=== PATIENT | female | born 1930 | race African-American/Black ===

== ENCOUNTER → 2017-03-24 | Outpatient (CLI) | payer BC, MEDICARE ==
[2016-05-04 15:00] VITALS: BP 143/90
[~2017-03-24] MED LIST: ACET650T26 PO; ASPI325T8 PO; ATOR20TA58 PO; CLON0.5T3 PO; CONTRAST GIVEN MC PRN; DIAZ5TAB4 PO; DILT180C29 PO; DULO30CA2 PO; DULO30CA43 PO; IOHEXOL 240 MG/ML 50ML VIAL. IV ONE; IOHEXOL 300 MG/ML 100ML VIAL. IV ONE; LINA5TAB4 PO; LOSA100T6 PO; LOSA50TA2 PO; METO100T7 PO; METO50TA6 PO; OMEG300C PO; PANT40TA3 PO; POLY17PO29 PO; SERT25TA4 PO; TEMA15CA PO; TRAM-48 PO; TRAM50TA PO; ZOLP5TAB PO
[2017-03-24 13:39] LABS: CREATININE 1.6 mg/dL (0.6-1.0); GFR 37.2
--- NOTE | 2017-03-24 14:14 | RAD ---
CT of the abdomen without contrast, 03/24/2017: History: Abdominal pain Multidetector CT imaging was performed following oral ingestion of contrast. No IV contrast was administered due to the patient's known renal insufficiency. There is linear scarring in the lung bases. Moderate coronary artery calcifications are present. There is a small cyst in anterior aspect of the liver. The unopacified liver is otherwise unremarkable. No gallbladder abnormality is seen. The pancreas is unremarkable. The spleen is of normal size. There are numerous bilateral renal cysts. The largest of these lies in the lower pole of the right kidney and measures 6.6 cm. The largest cyst on the left lies laterally and measures 5.2 cm. The renal collecting systems are not dilated. No adrenal abnormality is detected. There is moderate calcific plaquing of the abdominal aorta and its branches. There is only slight dilatation of the infrarenal abdominal aorta which measures 2.6 cm in AP diameter at that level. 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 It measures at least 2.7 cm. No abdominal adenopathy is seen. The visualized bowel loops are unremarkable. No free air or free fluid is seen in the abdomen. The rectus abdominis muscles are thinned. There is a small umbilical hernia containing only fat. There are moderate multilevel degenerative changes in the spine. A grade 1 spondylolisthesis is present at L3-4 due to facet joint arthropathy. IMPRESSION: 1. Multiple bilateral renal cysts. 2. Aortoiliac atherosclerosis with a left internal iliac artery aneurysm, incompletely delineated on these abdominal scans. 3. Small fat-containing umbilical hernia. 4. Mild spondylolisthesis at L3-4.
== END | disposition home or self-care (01) ==
LOC: CT 12:23
PROVIDERS: ATTEND Surgery
DX: K42.9 Umbilical hernia without obstruction or gangrene (principal); N28.1 Cyst of kidney, acquired; I72.3 Aneurysm of iliac artery; M43.16 Spondylolisthesis, lumbar region
CPT/HCPCS: 36415; 74150; 82565; 84520; Q9966; Q9967

== ENCOUNTER 2017-07-14 16:43 | Observation (INO) | payer BC ==
[2017-07-14 17:28] LABS: ADD MAN DIFF? NO
[2017-07-14 17:33] LABS: BASO % 1 % (0-3); EOS # 0.2 x10^3/uL (0.0-0.7); EOS % 4 % (0-3); HEMATOCRIT 43.4 % (36.0-47.0); HEMOGLOBIN 14.5 g/dL (12.0-15.5); LYMPH # 1.6 x10^3/uL (1.0-4.8); LYMPH % 35 % (24-48); MEAN CORPUSCULAR HEMOGLOBIN 31 pg (25-35); MEAN CORPUSCULAR HGB CONC 34 g/dL (31-37); MEAN CORPUSCULAR VOLUME 92 fL (79-100); MONO # 0.5 x10^3/uL (0.0-1.1); MONO % 11 % (0-9); NEUT # 2.3 x10^3uL (1.8-7.7); NEUT % 48 % (31-73); PLATELET COUNT 253 x10^3/uL (140-400); RED CELL DISTRIBUTION WIDTH 13.7 % (11.5-14.5); WHITE BLOOD COUNT 4.7 x10^3/uL (4.0-11.0)
[2017-07-14 17:42] LABS: INR 1.1 (0.8-1.1); PROTHROMBIN TIME PATIENT 13.4 SEC (11.7-14.0)
[2017-07-14 17:45] LABS: ANION GAP 10 (6-14); BLOOD UREA NITROGEN 20 mg/dL (7-20); CALCIUM 9.9 mg/dL (8.5-10.1); CARBON DIOXIDE 24 mmol/L (21-32); CHLORIDE 105 mmol/L (98-107); CREATININE 1.8 mg/dL (0.6-1.0); GFR 32.4; GLUCOSE 113 mg/dL (70-99); POTASSIUM 4.3 mmol/L (3.5-5.1); SODIUM 139 mmol/L (136-145)
[2017-07-14 17:53] LABS: ALBUMIN 3.6 g/dL (3.4-5.0); ALK PHOS 115 U/L (46-116); ALT (SGPT) 16 U/L (14-59); AST (SGOT) 17 U/L (15-37); DIRECT BILIRUBIN 0.1 mg/dL (0.0-0.2); LIPASE 215 U/L (73-393); MAGNESIUM 2.2 mg/dL (1.8-2.4); TOTAL BILIRUBIN 0.4 mg/dL (0.2-1.0); TOTAL PROTEIN 7.4 g/dL (6.4-8.2)
[2017-07-14 17:54] LABS: TROPONINI < 0.017 ng/mL (0.000-0.055)
[2017-07-14 17:58] LABS: THYROID STIM HORMONE (TSH) 1.338 uIU/mL (0.358-3.74)
[2017-07-14 18:04] LABS: NT-PRO BNP 422 pg/mL (0-449)
[2017-07-14 18:04] LABS: CKMB MASS 0.5 ng/mL (0.0-3.6); CREATINE KINASE 49 U/L (26-192)
[2017-07-14] MEDS: fentaNYL PF VIAL 100 MCG/2 ML VIAL IV (18:35)
[2017-07-14] MEDS ORDERED: ONDANSETRON PF 4 MG/2 ML VIAL. IV (19:45)
[2017-07-14] MEDS: IPRATRPIUM/ALBUTEROL 0.5/2.5MG 3 ML NEBU. NEB (21:00)
[2017-07-14] MEDS ORDERED: traMADol 50 MG TABLET PO (23:15)
[2017-07-15] MEDS: diphenhydrAMINE 50 MG/ML VIAL IVP (00:25)
[2017-07-15 02:19] LABS: ADD MAN DIFF? NO
[2017-07-15 02:39] LABS: BASO % 1 % (0-3); EOS # 0.3 x10^3/uL (0.0-0.7); EOS % 5 % (0-3); HEMATOCRIT 40.5 % (36.0-47.0); HEMOGLOBIN 13.9 g/dL (12.0-15.5); LYMPH # 2.1 x10^3/uL (1.0-4.8); LYMPH % 43 % (24-48); MEAN CORPUSCULAR HEMOGLOBIN 31 pg (25-35); MEAN CORPUSCULAR HGB CONC 34 g/dL (31-37); MEAN CORPUSCULAR VOLUME 92 fL (79-100); MONO # 0.5 x10^3/uL (0.0-1.1); MONO % 11 % (0-9); NEUT # 1.9 x10^3uL (1.8-7.7); NEUT % 39 % (31-73); PLATELET COUNT 230 x10^3/uL (140-400); RED BLOOD COUNT 4.43 x10^6/uL (3.50-5.40); RED CELL DISTRIBUTION WIDTH 13.4 % (11.5-14.5); WHITE BLOOD COUNT 4.8 x10^3/uL (4.0-11.0)
[2017-07-15 02:50] LABS: ANION GAP 9 (6-14); BLOOD UREA NITROGEN 20 mg/dL (7-20); CALCIUM 9.3 mg/dL (8.5-10.1); CARBON DIOXIDE 24 mmol/L (21-32); CHLORIDE 105 mmol/L (98-107); CREATININE 1.4 mg/dL (0.6-1.0); GFR 43.3; GLUCOSE 105 mg/dL (70-99); SODIUM 138 mmol/L (136-145)
[2017-07-15 03:02] LABS: TROPONINI < 0.017 ng/mL (0.000-0.055)
[2017-07-15] MEDS: IPRATRPIUM/ALBUTEROL 0.5/2.5MG 3 ML NEBU. NEB ×4 (08:22→20:16)
[2017-07-15] MEDS ORDERED: fentaNYL PF VIAL 100 MCG/2 ML VIAL IV (09:00)
[2017-07-15] MEDS: PANTOPRAZOLE 40 MG TABLET.DR. PO (09:46)
[2017-07-15] MEDS: ASPIRIN 325 MG TABLET PO (09:46)
[2017-07-15] MEDS: predniSONE 20 MG TABLET PO (09:46)
[2017-07-15] MEDS: METOPROLOL TART IMMED RELEASE 50 MG TABLET. PO ×2 (09:46→20:38)
[2017-07-15] MEDS: DULoxetine HCL 30 MG CAPSULE.DR PO (09:47)
[2017-07-15] MEDS: LOSARTAN POTASSIUM 50 MG TABLET. PO (09:47)
[2017-07-15] MEDS: KETOROLAC 30 MG/ML INJ. IV (09:47)
[2017-07-15] MEDS: ENOXAPARIN 30 MG/0.3 ML SYRINGE. SQ (09:48)
[2017-07-15] MEDS: POLYETHYLENE GLYCOL 3350 17 GM PACKET. PO (11:00)
[2017-07-15] MEDS: ATORVASTATIN CALCIUM 20 MG TABLET PO (20:37)
[2017-07-15] MEDS: clonazePAM 0.5 MG TABLET PO (20:38)
[2017-07-16] MEDS: IPRATRPIUM/ALBUTEROL 0.5/2.5MG 3 ML NEBU. NEB ×4 (05:59→19:37)
[2017-07-16] MEDS: LOSARTAN POTASSIUM 50 MG TABLET. PO (09:00)
[2017-07-16] MEDS: METOPROLOL TART IMMED RELEASE 50 MG TABLET. PO (09:00)
[2017-07-16] MEDS: POLYETHYLENE GLYCOL 3350 17 GM PACKET. PO (09:05)
[2017-07-16] MEDS: ENOXAPARIN 30 MG/0.3 ML SYRINGE. SQ (09:06)
[2017-07-16] MEDS: ACETAMINOPHEN 325 MG TABLET. PO ×3 (09:07→21:44)
[2017-07-16] MEDS: DULoxetine HCL 30 MG CAPSULE.DR PO (09:08)
[2017-07-16] MEDS: PANTOPRAZOLE 40 MG TABLET.DR. PO (09:08)
[2017-07-16] MEDS: ASPIRIN 325 MG TABLET PO (09:08)
[2017-07-16 10:16] LABS: ANION GAP 12 (6-14); BLOOD UREA NITROGEN 35 mg/dL (7-20); CARBON DIOXIDE 23 mmol/L (21-32); CHLORIDE 103 mmol/L (98-107); GFR 28.7; GLUCOSE 136 mg/dL (70-99); POTASSIUM 3.6 mmol/L (3.5-5.1); SODIUM 138 mmol/L (136-145)
[2017-07-16] MEDS: ATORVASTATIN CALCIUM 20 MG TABLET PO (20:14)
[2017-07-16] MEDS: clonazePAM 0.5 MG TABLET PO (20:14)
[2017-07-16] MEDS: METOPROLOL TART IMMED RELEASE 25 MG TABLET. PO (20:14)
[2017-07-17 05:29] LABS: HEMATOCRIT 38.5 % (36.0-47.0); HEMOGLOBIN 12.8 g/dL (12.0-15.5); MEAN CORPUSCULAR HEMOGLOBIN 31 pg (25-35); MEAN CORPUSCULAR HGB CONC 33 g/dL (31-37); MEAN CORPUSCULAR VOLUME 93 fL (79-100); PLATELET COUNT 225 x10^3/uL (140-400); RED BLOOD COUNT 4.14 x10^6/uL (3.50-5.40); RED CELL DISTRIBUTION WIDTH 13.3 % (11.5-14.5); WHITE BLOOD COUNT 5.8 x10^3/uL (4.0-11.0)
[2017-07-17 06:17] LABS: ANION GAP 9 (6-14); BLOOD UREA NITROGEN 34 mg/dL (7-20); CALCIUM 9.2 mg/dL (8.5-10.1); CARBON DIOXIDE 25 mmol/L (21-32); CHLORIDE 107 mmol/L (98-107); CREATININE 1.6 mg/dL (0.6-1.0); GFR 37.2; GLUCOSE 103 mg/dL (70-99); POTASSIUM 4.1 mmol/L (3.5-5.1); SODIUM 141 mmol/L (136-145)
[2017-07-17] MEDS: IPRATRPIUM/ALBUTEROL 0.5/2.5MG 3 ML NEBU. NEB ×5 (08:00→19:30)
[2017-07-17 08:12] LABS: SEDIMENTATION RATE 5 (0-25)
[2017-07-17] MEDS: METOPROLOL TART IMMED RELEASE 25 MG TABLET. PO ×2 (08:37→20:22)
[2017-07-17] MEDS: DULoxetine HCL 30 MG CAPSULE.DR PO (08:37)
[2017-07-17] MEDS: ACETAMINOPHEN 325 MG TABLET. PO ×3 (08:37→22:00)
[2017-07-17] MEDS: ASPIRIN 325 MG TABLET PO (08:37)
[2017-07-17] MEDS: POLYETHYLENE GLYCOL 3350 17 GM PACKET. PO (08:37)
[2017-07-17] MEDS: PANTOPRAZOLE 40 MG TABLET.DR. PO (08:38)
[2017-07-17] MEDS: LOSARTAN POTASSIUM 50 MG TABLET. PO (08:39)
[2017-07-17] MEDS: ENOXAPARIN 30 MG/0.3 ML SYRINGE. SQ (08:40)
[2017-07-17] MEDS: ATORVASTATIN CALCIUM 20 MG TABLET PO (20:22)
[2017-07-18] MEDS: ACETAMINOPHEN 325 MG TABLET. PO ×2 (06:21→13:06)
[2017-07-18] MEDS: IPRATRPIUM/ALBUTEROL 0.5/2.5MG 3 ML NEBU. NEB ×3 (08:04→15:14)
[2017-07-18] MEDS: ENOXAPARIN 30 MG/0.3 ML SYRINGE. SQ (09:00)
[2017-07-18] MEDS: ASPIRIN 325 MG TABLET PO (09:47)
[2017-07-18] MEDS: LOSARTAN POTASSIUM 50 MG TABLET. PO (09:47)
[2017-07-18] MEDS: PANTOPRAZOLE 40 MG TABLET.DR. PO (09:47)
[2017-07-18] MEDS: DULoxetine HCL 30 MG CAPSULE.DR PO (09:47)
[2017-07-18] MEDS: METOPROLOL TART IMMED RELEASE 25 MG TABLET. PO (09:47)
[2017-07-18] MEDS: POLYETHYLENE GLYCOL 3350 17 GM PACKET. PO (09:47)
== END 2017-07-18 16:10 | disposition home or self-care (01) ==
LOC: ER 16:43 → 6 SOUTH 18:36
DX: M19.012 Primary osteoarthritis, left shoulder (principal); M10.9 Gout, unspecified; R07.89 Other chest pain; I25.10 Atherosclerotic heart disease of native coronary artery without angina pectoris; I12.9 Hypertensive chronic kidney disease with stage 1 through stage 4 chronic kidney disease, or unspecified chronic kidney disease; N18.3 Chronic kidney disease, stage 3 (moderate); E78.5 Hyperlipidemia, unspecified; N17.9 Acute kidney failure, unspecified; E11.22 Type 2 diabetes mellitus with diabetic chronic kidney disease; I25.2 Old myocardial infarction; Z96.612 Presence of left artificial shoulder joint; Z90.710 Acquired absence of both cervix and uterus; Z95.1 Presence of aortocoronary bypass graft
CPT/HCPCS: 36415; 71045; 73030; 80048; 80076; 82553; 83690; 83735; 83880; 84443; 84484; 85025; 85027; 85610; 85651; 93005; 94640; 96372; 96374; 96375; 97165-GO; 97535-GO; 99285-25; G0378; G0379; J1200; J1650; J1885; J3010; J7512; J7620

== ENCOUNTER 2018-01-23 10:54 | Inpatient (IN) | payer BC ==
[~2018-01-23] VITALS: Ht 160 cm; Wt 68.5 kg
[~2018-01-23 10:54] MED LIST changes: +ACET325T9 PO; +CLON0.5T11 PO; -CLON0.5T3 PO; -CONTRAST GIVEN MC PRN; +DILT180C29; +DULO30CA43; +FURO20TA3 PO; -IOHEXOL 240 MG/ML 50ML VIAL. IV ONE; -IOHEXOL 300 MG/ML 100ML VIAL. IV ONE; -LOSA100T6 PO; +LOSA100T7 PO; +METO25TA4 PO
--- NOTE | 2018-01-23 11:39 | PHYS DOC ---
Past Medical History Past Medical History: CAD, Heart Disease, Hypertension, SC, Renal Disease Additional Past Medical Histor: Kidney problems, Heart problems Past Surgical History: Coronary Bypass Surgery, Hysterectomy, Other Additional Past Surgical Histo: Foot, L shoulder Alcohol Use: None Drug Use: None Adult General Chief Complaint Chief Complaint: MECHANICAL FALL HPI HPI Patient is a 87 year old female who presents with a fall last Monday in the bathroom and hurt her right hip and right side. Patient has been abusing her walker since the fall. Patient's daughter states that the patient states that the pain is little bit too much and she needed come to the hospital today. Daughter states the patient states that she started feeling her heart flutter. Patient denies chest pain, nausea, vomiting, abdominal pain. Daughter states that the patient just finished Cipro for a urinary tract infection that she is diagnosed with last . Patient's daughter is concerned that the urinary tract infection is not done as the patient has been still acting confused at times. The daughter does state that the patient does have dementia. Review of Systems Review of Systems Constitutional: Denies fever or chills [] Eyes: Denies change in visual acuity, redness, or eye pain [] HENT: Denies nasal congestion or sore throat [] Respiratory: Denies cough or shortness of breath [] Cardiovascular: Palpitations GI: Denies abdominal pain, nausea, vomiting, bloody stools or diarrhea [] : Denies dysuria or hematuria [] Musculoskeletal: Right rib pain. Denies back pain. Right hip joint pain [] Integument: Denies rash or skin lesions [] Neurologic: Denies headache, focal weakness or sensory changes [] Endocrine: Denies polyuria or polydipsia [] All other systems were reviewed and found to be within normal limits, except as documented in this note. Allergies Allergies Allergies Coded Allergies Type Severity Reaction Last Updated Verified iodine Allergy Severe SWELLING 06/23/15 Yes hydrocodone Allergy Intermediate PRURITIS 05/02/16 Yes lisinopril Allergy Intermediate COUGH 06/22/15 Yes Physical Exam Physical Exam Constitutional: Well developed, well nourished, no acute distress, non-toxic appearance. [] HENT: Normocephalic, atraumatic, bilateral external ears normal, oropharynx moist, no oral exudates, nose normal. [] Eyes: PERRLA, EOMI, conjunctiva normal, no discharge. [] Neck: Normal range of motion, no tenderness, supple, no stridor. [] Cardiovascular:Heart rate regular rhythm, no murmur [] Lungs & Thorax: Bilateral breath sounds clear to auscultation [] Abdomen: Bowel sounds normal, soft, Right upper quad tenderness, Right rib tenderness. no masses, no pulsatile masses. [] Skin: Warm, dry, no erythema, no rash. [] Back: No tenderness, no CVA tenderness. [] Extremities: Right hip tenderness, no cyanosis, no clubbing, right hip ROM not intact, no edema. [] Neurologic: Alert and oriented X 3, normal motor function, normal sensory function, no focal deficits noted. [] Psychologic: Affect normal, judgement normal, mood normal. [] Current Patient Data Vital Signs Vital Signs Date Time Temp Pulse Resp B/P (MAP) Pulse Ox O2 Delivery O2 Flow Rate FiO2 01/23/18 11:05 98.8 95 24 157/78 (104) 96 Room Air 98.8 Lab Values Laboratory Tests Test 01/23/18 11:55 White Blood Count 5.5 x10^3/uL (4.0-11.0) Red Blood Count 4.23 x10^6/uL (3.50-5.40) Hemoglobin 13.4 g/dL (12.0-15.5) Hematocrit 39.3 % (36.0-47.0) Mean Corpuscular Volume 93 fL (79-100) Mean Corpuscular Hemoglobin 32 pg (25-35) Mean Corpuscular Hemoglobin Concent 34 g/dL (31-37) Red Cell Distribution Width 13.0 % (11.5-14.5) Platelet Count 255 x10^3/uL (140-400) Neutrophils (%) (Auto) 65 % (31-73) Lymphocytes (%) (Auto) 22 % (24-48) L Monocytes (%) (Auto) 12 % (0-9) H Eosinophils (%) (Auto) 1 % (0-3) Basophils (%) (Auto) 1 % (0-3) Neutrophils # (Auto) 3.6 x10^3uL (1.8-7.7) Lymphocytes # (Auto) 1.2 x10^3/uL (1.0-4.8) Monocytes # (Auto) 0.6 x10^3/uL (0.0-1.1) Eosinophils # (Auto) 0.1 x10^3/uL (0.0-0.7) Basophils # (Auto) 0.1 x10^3/uL (0.0-0.2) Sodium Level 141 mmol/L (136-145) Potassium Level 3.2 mmol/L (3.5-5.1) L Chloride Level 104 mmol/L (98-107) Carbon Dioxide Level 30 mmol/L (21-32) Anion Gap 7 (6-14) Blood Urea Nitrogen 13 mg/dL (7-20) Creatinine 1.5 mg/dL (0.6-1.0) H Estimated GFR (Cockcroft-Gault) 39.9 Glucose Level 110 mg/dL (70-99) H Calcium Level 9.8 mg/dL (8.5-10.1) Troponin I Quantitative < 0.017 ng/mL (0.000-0.055) Laboratory Tests 01/23/18 11:55 Laboratory Tests 01/23/18 11:55 EKG EKG Sinus Rhythm, RBBB, NO STEMI Interpretation Time: [address] Carroll Radiology/Procedures Radiology/Procedures CT ABD PELVIS, CHEST XRAY Impressions: [facility] [address] [place], [place] [id number] IMAGING REPORT Signed PATIENT: VITO DUNCAN ACCOUNT: [id number] : 1930 LOCATION: ER AGE: 87 SEX: F EXAM STATUS: REG ER ORD. PHYSICIAN: LETTY THOMAS AUDITING CLERK REASON: FALL RIGHT SIDED UPPER ABD PAIN, RIGHT HIP PROCEDURE: CT ABDOMEN PELVIS WO CONTRAST CT ABDOMEN PELVIS WO CONTRAST Indication: FALL, RUQ ABD PAIN
Exposure: One or more of the following individualized dose reduction techniques were utilized for this examination: 1. Automated exposure control 2. Adjustment of the mA and/or kV according to patient size 3. Use of iterative reconstruction technique. Comparison: Prior CT abdomen of March 24, 2017. Contrast: No intravenous contrast given. No oral contrast per request. Evaluation of solid viscera, bowel and vasculature is compromised by the noncontrast technique. Lower thorax: Dense coronary artery calcification. Mild atelectasis in lung bases. Dense calcification partially seen in the right breast tissue laterally. Liver: Hypodense lesion anterior upper right lobe measures 15 mm in diameter stable since prior, measures 16 Hounsfield units, likely a cyst. Spleen: Unremarkable Pancreas: Unremarkable Adrenals: No evidence of mass. Kidneys: Numerous renal lesions are again identified bilaterally. 2 on the right kidney, largest measures 8.6 cm and 7.5 Hounsfield units. Innumerable confluent lesions of the left kidney overall demonstrates a similar morphology as on the prior exam. Several of the lesions on the left demonstrate some peripheral density. This could represent hemorrhage or calcification. This appears similar as prior study and therefore calcification is favored. Urinary tracts: No urolithiasis or hydronephrosis. Gallbladder: No calcified stone Aorta: Calcified and ectatic. Infrarenal aorta measures up to 2.6 cm transverse diameter, stable since prior study. Left internal iliac artery aneurysm measures 3.2 cm x 2.7 cm, was partially seen on prior study and appears similar where seen. Lymph nodes: No significant enlargement GI tract: Moderate distention of the colon with gas and stool. No evidence of bowel obstruction. Appendix is not clearly visualized. Reproductive organs:No evidence of mass. Urinary bladder: Not adequately distended for evaluation. Peritoneum: No evidence of pneumoperitoneum. No free fluid. Abdominal wall: Tiny fat-containing umbilical hernia. Spine: Degenerative spondylosis with spondylolisthesis, overall appears similar as prior exam. Bones: Degenerative changes at both hips. Degenerative changes at sacroiliac joints and pubic symphysis. IMPRESSION: 1. Numerous renal lesions, innumerable and confluent on the left, compatible with cysts. Some of the left cyst have a complex morphology with probable calcification. Overall the morphology is grossly similar to the prior study. 2. Moderate distention of colon with gas and stool, likely an ileus. 3. Atherosclerotic disease of the aorta and iliac vessels. Left internal iliac arterial aneurysm. Electronically signed by: Robinson Prince MD (01/23/2018 12:14 PM) [id number] DICTATED and SIGNED BY: ROBINSON PRINCE MD DATE: 01/23/18 1200 [facility] [address] [place] [address] IMAGING REPORT Signed PATIENT: VITO DUNCAN ACCOUNT: [id number] : 1930 LOCATION: ER AGE: 87 SEX: F EXAM STATUS: REG ER ORD. PHYSICIAN: LETTY THOMAS APRN REASON: FALL, RT SIDED CHEST PAIN PROCEDURE: CHEST PA & LATERAL AP and Lateral Views of the Chest 01/23/2018 11:14 AM Indication: PT FELL MONDAY RT SIDED CHEST PAIN Comparison: Chest radiograph October 15, 2014 Findings: No pneumothorax is identified. Multiple right-sided rib fractures are seen. Refer to dedicated rib radiographs for further detail. Right basilar atelectasis is noted. No focal consolidative infiltrate is seen. Heart size mildly enlarged. Median sternotomy noted.Bilateral shoulder arthroplasty noted. Degenerative changes of the thoracic spine are seen. IMPRESSION: Multiple inferior lateral right-sided rib fractures, better seen on dedicated rib radiographs. Right basilar atelectasis. No definitive pneumothorax or other acute cardiopulmonary process. Electronically signed by: Catrachito Gayle MD (01/23/2018 11:45 AM) [facility] DICTATED and SIGNED BY: CATRACHITO GAYLE MD DATE: 01/23/18 1138 [facility] [address] [facility] [place] [address] IMAGING REPORT Signed PATIENT: VITO DUNCAN ACCOUNT: [id number] : 1930 LOCATION: ER AGE: 87 SEX: F EXAM STATUS: REG ER ORD. PHYSICIAN: LETTY THOMAS APRN REASON: FALL, RT SIDED LOW RIB PAIN PROCEDURE: RIBS RIGHT Right RIBS, 2 views, 01/23/2018: HISTORY: Fall, injuries There is a slightly displaced fracture of the posterior lateral aspect of the right seventh rib. The lower ribs were not clearly defined on these radiographs due to motion artifacts, however, correlation with the current CT abdomen study demonstrates several additional right lower rib fractures, including the posterior 12th and 11th ribs, as well as the lateral eighth and 10th ribs. There is mild right basilar atelectasis. IMPRESSION: Multiple right lower rib fractures as described above. Electronically signed by: Eder Hernandez MD (01/23/2018 11:51 AM) [facility] DICTATED and SIGNED BY: EDER HERNANDEZ MD DATE: 01/23/18 1144 Course & Med Decision Making Course & Med Decision Making Patient is a 87 year old female who presents with a fall last Monday in the bathroom and hurt her right hip and right side. Patient has been abusing her walker since the fall. Patient's daughter states that the patient states that the pain is little bit too much and she needed come to the hospital today. Daughter states the patient states that she started feeling her heart flutter. Patient denies chest pain, nausea, vomiting, abdominal pain. Daughter states that the patient just finished Cipro for a urinary tract infection that she is diagnosed with last . Patient's daughter is concerned that the urinary tract infection is not done as the patient has been still acting confused at times. The daughter does state that the patient does have dementia. She is alert and oriented. Patient has no deformity or bruising seen. Patient does have right rib tenderness, right upper abdominal side tenderness, and right hip pain with palpation. When I rock her pelvic area she states it does not hurt. Patient has been up and walking and using her walker at home. Patient's daughter states that she has had several falls and then was diagnosed the urinary tract infection. Patient states that she has no chest pain. Her lungs are clear to auscultation. Patient currently denies having any urinary symptoms. Patient otherwise has a soft abdomen that is nontender. Patient has no lacerations, wounds, abrasions to the rest of her body or her head. Patient denies hitting her head or LOC. Patient's family also denies the patient hitting her head or LOC. Patient answers my questions appropriately. Patient's primary care provider is Dr. Verde. I asked the daughter if the patient was going to be following up with Dr. Verde since she just finished antibiotic for her urinary tract infection and she stated she does not know. No internal or external rotation of either leg. Denies any numbness or tingling. Radiology results show The lower ribs were not clearly defined on these radiographs due to motion artifacts, however, correlation with the current CT abdomen study demonstrates several additional right lower rib fractures, including the posterior 12th and 11th ribs, as well as the lateral eighth and 10th ribs. There is mild right basilar atelectasis. Multiple inferior lateral right-sided rib fractures, better seen on dedicated rib radiographs. Right basilar atelectasis. No definitive pneumothorax or other acute cardiopulmonary process. 1. Numerous renal lesions, innumerable and confluent on the left, compatible with cysts. Some of the left cyst have a complex morphology with probable calcification. Overall the morphology is grossly similar to the prior study. 2. Moderate distention of colon with gas and stool, likely an ileus.3. Atherosclerotic disease of the aorta and iliac vessels. Left internal iliac arterial aneurysm. Patient denies abdominal pain, nausea or vomiting and so does the daughter. EKG shows Sinus rhythm, RBBB, no STEMI and was read by Dr. Carroll. I have spoken with Dr Verde and the patient will be admitted for pain control and partial bowel obstruction. 1253- Dr Verde is currently in speaking with the patient. [] Dragon Disclaimer Dragon Disclaimer This electronic medical record was generated, in whole or in part, using a voice recognition dictation system. Departure Departure Impression: Primary Impression: Partial bowel obstruction Disposition: ADMITTED INPATIENT Admitting Physician: Lucho Verde Condition: STABLE Referrals: Ino VERDE MD (PCP) Problem Qualifiers Primary Impression: Partial bowel obstruction Intestinal obstruction type: unspecified Qualified Codes: K56.600 - Partial intestinal obstruction, unspecified as to cause LETTY THOMAS AUDITING CLERK Jan 23, 2018 11:39
--- NOTE | 2018-01-23 11:48 | RAD ---
AP and Lateral Views of the Chest 01/23/2018 11:14 AM Indication: PT FELL MONDAY RT SIDED CHEST PAIN Comparison: Chest radiograph October 15, 2014 Findings: No pneumothorax is identified. Multiple right-sided rib fractures are seen. Refer to dedicated rib radiographs for further detail. Right basilar atelectasis is noted. No focal consolidative infiltrate is seen. Heart size mildly enlarged. Median sternotomy noted.Bilateral shoulder arthroplasty noted. Degenerative changes of the thoracic spine are seen. IMPRESSION: Multiple inferior lateral right-sided rib fractures, better seen on dedicated rib radiographs. Right basilar atelectasis. No definitive pneumothorax or other acute cardiopulmonary process. Electronically signed by: Catrachito Gayle MD (01/23/2018 11:45 AM) [facility]
--- NOTE | 2018-01-23 11:54 | RAD ---
Right RIBS, 2 views, 01/23/2018: HISTORY: Fall, injuries There is a slightly displaced fracture of the posterior lateral aspect of the right seventh rib. The lower ribs were not clearly defined on these radiographs due to motion artifacts, however, correlation with the current CT abdomen study demonstrates several additional right lower rib fractures, including the posterior 12th and 11th ribs, as well as the lateral eighth and 10th ribs. There is mild right basilar atelectasis. IMPRESSION: Multiple right lower rib fractures as described above. Electronically signed by: Eder Hernandez MD (01/23/2018 11:51 AM) [facility]
[2018-01-23 12:06] LABS: BASO # 0.1 x10^3/uL (0.0-0.2); BASO % 1 % (0-3); EOS # 0.1 x10^3/uL (0.0-0.7); EOS % 1 % (0-3); HEMATOCRIT 39.3 % (36.0-47.0); HEMOGLOBIN 13.4 g/dL (12.0-15.5); LYMPH # 1.2 x10^3/uL (1.0-4.8); LYMPH % 22 % (24-48); MEAN CORPUSCULAR HEMOGLOBIN 32 pg (25-35); MEAN CORPUSCULAR HGB CONC 34 g/dL (31-37); MEAN CORPUSCULAR VOLUME 93 fL (79-100); MONO # 0.6 x10^3/uL (0.0-1.1); MONO % 12 % (0-9); NEUT # 3.6 x10^3uL (1.8-7.7); NEUT % 65 % (31-73); PLATELET COUNT 255 x10^3/uL (140-400); RED BLOOD COUNT 4.23 x10^6/uL (3.50-5.40); WHITE BLOOD COUNT 5.5 x10^3/uL (4.0-11.0)
[2018-01-23 12:15] LABS: CALCIUM 9.8 mg/dL (8.5-10.1); CREATININE 1.5 mg/dL (0.6-1.0); GFR 39.9; POTASSIUM 3.2 mmol/L (3.5-5.1)
--- NOTE | 2018-01-23 12:17 | RAD ---
CT ABDOMEN PELVIS WO CONTRAST Indication: FALL, RUQ ABD PAIN
Exposure: One or more of the following individualized dose reduction techniques were utilized for this examination: 1. Automated exposure control 2. Adjustment of the mA and/or kV according to patient size 3. Use of iterative reconstruction technique. Comparison: Prior CT abdomen of March 24, 2017. Contrast: No intravenous contrast given. No oral contrast per request. Evaluation of solid viscera, bowel and vasculature is compromised by the noncontrast technique. Lower thorax: Dense coronary artery calcification. Mild atelectasis in lung bases. Dense calcification partially seen in the right breast tissue laterally. Liver: Hypodense lesion anterior upper right lobe measures 15 mm in diameter stable since prior, measures 16 Hounsfield units, likely a cyst. Spleen: Unremarkable Pancreas: Unremarkable Adrenals: No evidence of mass. Kidneys: Numerous renal lesions are again identified bilaterally. 2 on the right kidney, largest measures 8.6 cm and 7.5 Hounsfield units. Innumerable confluent lesions of the left kidney overall demonstrates a similar morphology as on the prior exam. Several of the lesions on the left demonstrate some peripheral density. This could represent hemorrhage or calcification. This appears similar as prior study and therefore calcification is favored. Urinary tracts: No urolithiasis or hydronephrosis. Gallbladder: No calcified stone Aorta: Calcified and ectatic. Infrarenal aorta measures up to 2.6 cm transverse diameter, stable since prior study. Left internal iliac artery aneurysm measures 3.2 cm x 2.7 cm, was partially seen on prior study and appears similar where seen. Lymph nodes: No significant enlargement GI tract: Moderate distention of the colon with gas and stool. No evidence of bowel obstruction. Appendix is not clearly visualized. Reproductive organs:No evidence of mass. Urinary bladder: Not adequately distended for evaluation. Peritoneum: No evidence of pneumoperitoneum. No free fluid. Abdominal wall: Tiny fat-containing umbilical hernia. Spine: Degenerative spondylosis with spondylolisthesis, overall appears similar as prior exam. Bones: Degenerative changes at both hips. Degenerative changes at sacroiliac joints and pubic symphysis. IMPRESSION: 1. Numerous renal lesions, innumerable and confluent on the left, compatible with cysts. Some of the left cyst have a complex morphology with probable calcification. Overall the morphology is grossly similar to the prior study. 2. Moderate distention of colon with gas and stool, likely an ileus. 3. Atherosclerotic disease of the aorta and iliac vessels. Left internal iliac arterial aneurysm. Electronically signed by: Robinson Prince MD (01/23/2018 12:14 PM) [facility]
[2018-01-23 12:49] LABS: BILIRUBIN,URINE SMALL (NEG); CLARITY,URINE CLEAR; COLOR,URINE AMBER; NITRITE,URINE NEGATIVE (NEG); PROTEIN,URINE 30 mg/dL (NEG-TRACE); UROBILINOGEN,URINE 0.2 mg/dL (0.2 mg/dL)
[2018-01-23] MEDS ORDERED: ACETAMINOPHEN 325 MG TABLET. PO PRN (13:00)
[2018-01-23] MEDS ORDERED: ONDANSETRON PF 4 MG/2 ML VIAL. IV PRN (13:00)
[2018-01-23 13:10] LABS: SQUAMOUS EPITHELIAL CELL,UR FEW /LPF
[2018-01-23 13:11] LABS: BACTERIA,URINE 0 /HPF (0-FEW); HYALINE CASTS, URINE OCCASIONAL /HPF; WBC,URINE OCC /HPF (0-4)
--- NOTE | 2018-01-23 13:38 | EKG ---
[facility] [address] [place] [address] Test Date: 2018-01-23 Test Time: 11:50:23 Pat Name: VITO DUNCAN Department: Room: Gender: F [employer] Basic: TW : 1930 Requested By: LETTY THOMAS Order Number: [id number] Reading MD: Igor Nguyen MD Measurements Intervals [place] Rate: 91 P: 90 HI: 140 QRS: -26 QRSD: 136 T: 0 QT: 380 QTc: 469 Interpretive Statements SINUS RHYTHM LEFTWARD AXIS RIGHT BUNDLE BRANCH BLOCK RVH WITH REPOLARIZATION ABNORMALITY ABNORMAL ECG Electronically Signed On 01-24-2018 12:28:17 CDT by Igor Nguyen MD
[2018-01-23] MEDS: ALBUTEROL SULFATE 2.5 MG/3 ML NEBU. NEB SCH ×3 (16:00→19:35)
[2018-01-23] MEDS: ENOXAPARIN 30 MG/0.3 ML SYRINGE. SQ SCH (16:00)
[2018-01-23] MEDS: fentaNYL PF VIAL 100 MCG/2 ML VIAL IV PRN ×2 (16:20→21:09)
[2018-01-23] MEDS: IV DEXTROSE 5%-LACT RINGERS 1,000 ML IV SCH (16:25)
[2018-01-23] MEDS: BISACODYL 10 MG SUPP.RECT. PR PRN (18:00)
--- NOTE | 2018-01-23 18:44 | HP ---
ADMIT DATE: 01/23/2018 ADMISSION DIAGNOSIS: Multiple right rib fractures with abdominal ileus. HISTORY OF PRESENT ILLNESS: This is an 87-year-old white female who fell in the bathtub on Monday. She had some pain on her right side, ribs and hip area and was evaluated by family. She did not seem to be in a significant amount of distress at that time, but has continued to have pain and by today severe enough to warrant evaluation in the Emergency Room. She was brought in, seen and evaluated and found to have multiple right rib fractures, some of them on x-ray, some of them on CT imaging. She is also noted to have some abdominal distention and abdominal imaging revealing multiple cysts in her kidneys and changes consistent with an ileus. Because of her dementia and underlying debility and uncontrolled pain, she is admitted. PAST MEDICAL HISTORY: Hypertension, coronary artery disease, gout, spinal stenosis, fibromyalgia, B12 deficiency, diabetes, osteoarthritis. PAST SURGICAL HISTORY: Include hysterectomy, CABG in 2002, left shoulder replacement in 2009, stress MPI 2012, bilateral breast biopsy and repeat shoulder surgery. FAMILY HISTORY: Father had heart trouble. Mother of natural causes. SOCIAL HISTORY: Daughters help and care for. She does not smoke. ALLERGIES: TO LISINOPRIL, WHICH CAUSED COUGH; IODINE, UNKNOWN; HYDROCODONE, ITCHING; TRAMADOL CAUSED HER TO FALL AND FEEL UNSTABLE. REVIEW OF SYSTEMS: CONSTITUTIONAL: Her weight has been stable. HEENT: No recent dry mouth, sore throat or trouble swallowing. RESPIRATORY: No cough or shortness of breath. CARDIOVASCULAR: No cardiac chest pain. ABDOMEN: Has been positive for recent abdominal pain. GENITOURINARY: Positive for recent urinary tract infection, which was treated with Cipro and she just completed that last week. MUSCULOSKELETAL: Pain of the shoulders and chronic back pain with abnormal gait and poor balance. PSYCHIATRIC: Positive for anxiety related to her poor memory. HOME MEDICATIONS: Aspirin 325 mg daily, atorvastatin 20 mg daily, [place] 5/325 one-half tab b.i.d. p.r.n. pain, Tylenol 650 extended release 2 tabs t.i.d. p.r.n., diltiazem extended release 180 mg per 24 hour daily, ranitidine 150 mg b.i.d., metoprolol 25 mg b.i.d., diclofenac topical gel 1% topically q.i.d. p.r.n., furosemide 20 mg daily at 1 on Monday and 1 on , trazodone 150 mg one-half tablet daily. She just completed Cipro 250 mg b.i.d. PHYSICAL EXAMINATION: VITAL SIGNS: Stable. She is alert, uncomfortable, somewhat confused. HEENT: Conjunctivae are clear. Mucous membranes are moist. No congestion. NECK: Supple. CARDIAC: Regular rate and rhythm, sinus per monitor. CHEST: Lungs are clear anteriorly, although respiratory effort somewhat limited by pain. There is tenderness in the entire right side of her chest wall, even with light touch. There is no bruising or abrasions noted on her chest wall. It is difficult to turn her and assess her flank area. ABDOMEN: Distended, it is soft, it is nontender. No hepatosplenomegaly is present to palpation. Bowel sounds are relatively quiet though. EXTREMITIES: Without clubbing, cyanosis or edema. Significant arthritic changes are present in small and large joints, but no effusions. I am unable to palpate any tenderness in the right leg or hip area. IMAGING STUDIES: CT abdomen and pelvis showed numerous renal lesions compatible with cysts similar to prior imaging. Multiple right lower rib fractures are noted, which is also confirmed on her chest x-ray and right rib. These appear to include more than 5 ribs though. LABORATORY STUDIES: Noted. ASSESSMENT: 1. Multiple right rib fractures from fall in bathtub at home. She is admitted for pain control. Ortho consultation. 2. Ileus. She will be kept n.p.o. overnight, started on IV hydration. GI consultation if it does not resolve. 3. Dementia. We will need to watch for ing and worsening of anxiety. 4. Hypertension. Continue her home meds. 5. Coronary artery disease, currently asymptomatic. 6. History of lumbar spinal stenosis and back pain. She is currently at bed rest. 7. Fibromyalgia. She has recently been taken off of duloxetine. 8. History of B12 deficiency, on replacement with a recent office B12 level of over 1000. 9. Type 2 diabetes with recent office A1c of 5.8, diet controlled. W Pablo OCAMPO MD DR: CHARLEY/tobi JOB#: [id number] / [id number]
[2018-01-23 20:06] VITALS: BP 150/78
[2018-01-23] MEDS: traZODone 50 MG TABLET. PO SCH (21:00)
[2018-01-23] MEDS: METOPROLOL TART IMMED RELEASE 25 MG TABLET. PO SCH (21:00)
[2018-01-23] MEDS: ACETAMINOPHEN 325 MG TABLET. PO SCH (22:00)
[2018-01-23 23:09] VITALS: BP 155/78
[2018-01-24] MEDS: IV DEXTROSE 5%-LACT RINGERS 1,000 ML IV SCH ×2 (01:18→08:50)
[2018-01-24 03:28] VITALS: BP 130/72
--- NOTE | 2018-01-24 03:43 | RAD ---
Pelvis and two-view right hip: Reason for examination: Recent fall at home with painful right hip. Single view of the pelvis shows no evidence of fracture. The bone density is normal. No abnormality seen at the sacrum or sacroiliac joints. Proximal left femur appears to be intact. The right hip shows no acute fracture or dislocation. The bone density is normal. No abnormal periosteal reaction is seen. Joint space is maintained. IMPRESSION: No acute bony abnormality in the pelvis or right hip. Electronically signed by: Deyanira Gonzalez MD (01/24/2018 3:40 AM) [facility] [place]
[2018-01-24] MEDS: fentaNYL PF VIAL 100 MCG/2 ML VIAL IV PRN (04:20)
[2018-01-24] MEDS: ACETAMINOPHEN 325 MG TABLET. PO SCH ×3 (05:23→17:52)
[2018-01-24 06:06] LABS: BASO % 1 % (0-3); EOS # 0.1 x10^3/uL (0.0-0.7); EOS % 2 % (0-3); HEMATOCRIT 35.7 % (36.0-47.0); LYMPH % 20 % (24-48); MEAN CORPUSCULAR HEMOGLOBIN 31 pg (25-35); MEAN CORPUSCULAR HGB CONC 34 g/dL (31-37); MEAN CORPUSCULAR VOLUME 93 fL (79-100); MONO # 0.6 x10^3/uL (0.0-1.1); MONO % 13 % (0-9); NEUT # 3.2 x10^3uL (1.8-7.7); NEUT % 65 % (31-73); PLATELET COUNT 220 x10^3/uL (140-400); RED BLOOD COUNT 3.85 x10^6/uL (3.50-5.40); WHITE BLOOD COUNT 4.9 x10^3/uL (4.0-11.0)
[2018-01-24 06:13] LABS: CALCIUM 9.4 mg/dL (8.5-10.1); CREATININE 1.2 mg/dL (0.6-1.0); GFR 51.7
[2018-01-24 06:17] LABS: POTASSIUM 2.8 mmol/L (3.5-5.1)
[2018-01-24 07:00] VITALS: BP 161/91
--- NOTE | 2018-01-24 08:28 | RAD ---
Portable abdomen, 2 views, 01/24/2018: HISTORY: Follow-up ileus There is a moderate amount gas in large and small bowel with dilatation of the transverse colon. Similar findings were evident on yesterday's CT study. No free air is evident in the abdomen. There is no evidence organomegaly. Linear atelectasis and/or scarring is present in the right base. Moderate scattered degenerative changes are present in the spine. IMPRESSION: Mild unchanged gaseous distention of the transverse colon most likely representing an atonic colon/ileus. Electronically signed by: Eder Hernandez MD (01/24/2018 8:24 AM) [facility]
[2018-01-24] MEDS: ALBUTEROL SULFATE 2.5 MG/3 ML NEBU. NEB SCH ×4 (08:41→19:41)
[2018-01-24] MEDS: POTASSIUM CHLORIDE 10MEQ 100 ML IV SCH ×4 (08:45→13:13)
[2018-01-24] MEDS: clonazePAM 0.5 MG TABLET PO PRN ×2 (08:48→21:08)
[2018-01-24] MEDS: DULoxetine HCL 30 MG CAPSULE.DR PO SCH (08:48)
[2018-01-24] MEDS: METOPROLOL TART IMMED RELEASE 25 MG TABLET. PO SCH ×2 (08:48→21:09)
[2018-01-24] MEDS: LOSARTAN POTASSIUM 50 MG TABLET. PO SCH (08:50)
[2018-01-24] MEDS ORDERED: FUROSEMIDE 20 MG TABLET PO SCH (09:00)
[2018-01-24 11:38] VITALS: BP 131/67
[2018-01-24] MEDS ORDERED: DOCUSATE SODIUM 283 MG/5 ML ENEMA. PR PRN (12:00)
[2018-01-24] MEDS ORDERED: BISACODYL 10 MG SUPP.RECT. PR ONE (12:15)
[2018-01-24] MEDS: BISACODYL 5 MG TABLET.DR. PO PRN (13:07)
[2018-01-24] MEDS: DICLOFENAC SODIUM 1% TOPICAL GEL 100GM TUBE. TP SCH ×2 (13:07→21:11)
[2018-01-24 15:18] VITALS: BP 142/74
--- NOTE | 2018-01-24 16:27 | PDOC ---
PROGRESS NOTES Subjective Pain controlled with Tylenol and minimal activity, bowels moving but atonic ileus persists on imaging, hip and pelvic Xrays negative, no new injuries identified, daughter says she has had several falls and the one on Monday was in the bathroom, not bathtub and occurred with her present and did not seem significant, but there have been other falls Objective Afebrile General: confused, bewildered by diagnosis but cannot remember it Heart: RRR Lungs: CTA Chest: tendern on right side, no bruising Abd: soft, minimal distension Ext: no edema WBC: 4.9 Hgb: 12.0 K+: 2.8 Creat: 1.2 Vital Signs Vital Signs Date Time Temp Pulse Resp B/P (MAP) Pulse Ox O2 Delivery O2 Flow Rate FiO2 01/24/18 15:35 Room Air 01/24/18 15:18 97.6 85 16 142/74 (96) 98 97.6 I & O Intake and Output 01/24/18 07:00 Intake Total 1260 ml Balance 1260 ml Intake Oral 60 ml Other 1200 ml # Voids 4 Assessment and Plan 1. Multiple right rib fractures from fall in bathroom at home. She is admitted for pain control which is now achieved with Tylenol, PT/OT, Physiatry consult, daughter agreeable to SNU 2. Ileus, atonic. She was kept n.p.o. overnight, started on IV hydration and now having BMs so will start GI soft diet and stop fluids 3. Dementia with depression, recently started on trazodone which will continue. We will need to watch for sundowning and worsening of anxiety. 4. Hypertension. Continue her home meds. 5. Coronary artery disease, currently asymptomatic. 6. History of lumbar spinal stenosis and back pain. 7. Fibromyalgia. She was recently been taken off of duloxetine, will resume. 8. History of B12 deficiency, on replacement with a recent office B12 level of over 1000. 9. Type 2 diabetes with recent office A1c of 5.8, diet controlled. 10. Acute renal failure from ATN, resolved with IV hydration 11. recent UTI Ino OCAMPO MD Jan 24, 2018 16:27
[2018-01-24] MEDS: BACITRACIN/POLYMYXIN B OPHTH OINTMENT 3.5GM TUBE. OS SCH ×2 (17:52→21:46)
[2018-01-24] MEDS: ENOXAPARIN 30 MG/0.3 ML SYRINGE. SQ SCH (17:53)
--- NOTE | 2018-01-24 18:28 | CONS ---
DATE OF CONSULTATION: 01/24/2018 I saw her at the request of Dr. Verde on 01/24/2018. LOCATION: She is in room 432. HISTORY OF PRESENT ILLNESS: This is an 87-year-old female who fell in the bathtub on 01/21/2018 and had some pain over right ribcage and hip area, was seen by her family, at the time she was not in any significant distress. She continued to have pain and was admitted on 01/23/2018, where she had x-rays taken in the Emergency Room, which revealed multiple right rib fractures. The patient also had slight abdominal distention and abdominal imaging revealed multiple cysts in her kidneys and changes consistent with ileus. She apparently had a bowel movement yesterday. She had some underlying dementia. The patient also with known hypertension, coronary artery disease, gouty arthritis, spinal stenosis, fibromyalgia, B12 deficiency, diabetes mellitus, osteoarthritis, status post hysterectomy, coronary artery bypass graft surgery, left shoulder replacement in 2009, bilateral breast biopsy and repeat shoulder surgery. She still admits some pain and stiffness in her shoulders. The patient had family history of heart problem with her father and mother of natural causes. She gets some help with homemaking from her daughters. SHE IS KNOWN ALLERGIC TO LISINOPRIL, IODINE, HYDROCODONE, TRAMADOL. The patient denies any significant rib cage area pain at present time. PHYSICAL EXAMINATION: Today, revealed an elderly female. She is alert, oriented to place and person, follows commands appropriately, moves all 4 extremities voluntarily where she had 4+/5 grade muscle strength with relatively increased weakness in shoulder abductors and external rotators. She had limitation of shoulder joint abduction. She had hand intrinsic muscle atrophy. Deep tendon reflexes are 1-2+ and symmetrical and she had equal perception of touch and pinprick sensation bilaterally. She had crepitus on range of motion of both knee joints with mild left knee joint effusion. She had some tenderness to palpation over posterior shoulder girdle muscles. No significant tenderness to palpation over thoracic or lumbar spine area, and straight leg raising test is negative bilaterally. She is independent with bed mobility and transfers, once up walking using a roller walker without any loss of balance. ASSESSMENT: An elderly female with a recent fall and fracture of right rib cage, also chronic shoulder area pain. The patient is status post shoulder arthroplasty revised on the left side. The patient also presents with degenerative joint disease of her knees without any significant discomfort. The patient with coronary artery disease, history of gouty arthritis. RECOMMENDATIONS: Home when medically stable with outpatient followup. Dr. Verde, I appreciate asking me to participate in the care of this interesting patient. I will be glad to follow her with you as needed for her rehabilitation. PAIGE HARVEY MD DR: ELAINE/tobi JOB#: [id number] / [id number]
[2018-01-24 19:30] VITALS: BP 164/66
[2018-01-24] MEDS: traZODone 50 MG TABLET. PO SCH (21:09)
[2018-01-24 23:00] VITALS: BP 151/63
[2018-01-25 03:54] VITALS: BP 179/87
[2018-01-25] MEDS: ACETAMINOPHEN 325 MG TABLET. PO SCH ×3 (06:00→22:11)
[2018-01-25 07:00] VITALS: BP 131/69
[2018-01-25] MEDS: ALBUTEROL SULFATE 2.5 MG/3 ML NEBU. NEB SCH ×4 (07:18→20:28)
[2018-01-25] MEDS: DULoxetine HCL 30 MG CAPSULE.DR PO SCH (08:16)
[2018-01-25] MEDS: LOSARTAN POTASSIUM 50 MG TABLET. PO SCH (08:17)
[2018-01-25] MEDS: METOPROLOL TART IMMED RELEASE 25 MG TABLET. PO SCH ×2 (08:17→21:00)
[2018-01-25] MEDS: DICLOFENAC SODIUM 1% TOPICAL GEL 100GM TUBE. TP SCH ×2 (08:19→22:12)
[2018-01-25] MEDS: BACITRACIN/POLYMYXIN B OPHTH OINTMENT 3.5GM TUBE. OS SCH ×4 (09:00→22:12)
--- NOTE | 2018-01-25 09:20 | PDOC ---
PROGRESS NOTES Subjective Subjective No new complaints. Objective Objective Vital Signs Date Time Temp Pulse Resp B/P (MAP) Pulse Ox O2 Delivery O2 Flow Rate FiO2 01/25/18 08:17 98 131/69 01/25/18 07:18 95 Room Air 01/25/18 07:00 98.1 16 98.1 Intake and Output 01/25/18 07:00 Intake Total 240 ml Balance 240 ml Intake Oral 240 ml # Voids 10 # Bowel Movements 2 Physical Exam Physical Exam She is supine in bed and seems to be somewhat lethargic from her trazodone she received last PM.She did walk with roller walker yesterday. Her main problem when I saw her is with shoulder area pain,in a patient who had bilateral shoulder arthroplasty and revised once on left. Assessment Assessment Problems Medical Problems: (1) Partial bowel obstruction Status: Acute Plan Plan of Care To get her up as tolerated and to SNF if she qualifies. Comment Review of Relevant I have reviewed the following items yeison (where applicable) has been applied. Labs Laboratory Tests Test 01/23/18 11:55 01/23/18 12:41 01/24/18 05:20 White Blood Count 5.5 x10^3/uL (4.0-11.0) 4.9 x10^3/uL (4.0-11.0) Red Blood Count 4.23 x10^6/uL (3.50-5.40) 3.85 x10^6/uL (3.50-5.40) Hemoglobin 13.4 g/dL (12.0-15.5) 12.0 g/dL (12.0-15.5) Hematocrit 39.3 % (36.0-47.0) 35.7 % (36.0-47.0) Mean Corpuscular Volume 93 fL (79-100) 93 fL (79-100) Mean Corpuscular Hemoglobin 32 pg (25-35) 31 pg (25-35) Mean Corpuscular Hemoglobin Concent 34 g/dL (31-37) 34 g/dL (31-37) Red Cell Distribution Width 13.0 % (11.5-14.5) 13.0 % (11.5-14.5) Platelet Count 255 x10^3/uL (140-400) 220 x10^3/uL (140-400) Neutrophils (%) (Auto) 65 % (31-73) 65 % (31-73) Lymphocytes (%) (Auto) 22 % (24-48) 20 % (24-48) Monocytes (%) (Auto) 12 % (0-9) 13 % (0-9) Eosinophils (%) (Auto) 1 % (0-3) 2 % (0-3) Basophils (%) (Auto) 1 % (0-3) 1 % (0-3) Neutrophils # (Auto) 3.6 x10^3uL (1.8-7.7) 3.2 x10^3uL (1.8-7.7) Lymphocytes # (Auto) 1.2 x10^3/uL (1.0-4.8) 1.0 x10^3/uL (1.0-4.8) Monocytes # (Auto) 0.6 x10^3/uL (0.0-1.1) 0.6 x10^3/uL (0.0-1.1) Eosinophils # (Auto) 0.1 x10^3/uL (0.0-0.7) 0.1 x10^3/uL (0.0-0.7) Basophils # (Auto) 0.1 x10^3/uL (0.0-0.2) 0.0 x10^3/uL (0.0-0.2) Sodium Level 141 mmol/L (136-145) 143 mmol/L (136-145) Potassium Level 3.2 mmol/L (3.5-5.1) 2.8 mmol/L (3.5-5.1) Chloride Level 104 mmol/L (98-107) 105 mmol/L (98-107) Carbon Dioxide Level 30 mmol/L (21-32) 30 mmol/L (21-32) Anion Gap 7 (6-14) 8 (6-14) Blood Urea Nitrogen 13 mg/dL (7-20) 10 mg/dL (7-20) Creatinine 1.5 mg/dL (0.6-1.0) 1.2 mg/dL (0.6-1.0) Estimated GFR (Cockcroft-Gault) 39.9 51.7 Glucose Level 110 mg/dL (70-99) 158 mg/dL (70-99) Calcium Level 9.8 mg/dL (8.5-10.1) 9.4 mg/dL (8.5-10.1) Troponin I Quantitative < 0.017 ng/mL (0.000-0.055) Urine Collection Type U cath Urine Color [place] Urine Clarity Clear Urine pH 6.0 Urine Specific [place] >=1.030 Urine Protein 30 mg/dL (NEG-TRACE) Urine Glucose (UA) Negative mg/dL (NEG) Urine Ketones (Stick) Trace mg/dL (NEG) Urine Blood Negative (NEG) Urine Nitrite Negative (NEG) Urine Bilirubin Small (NEG) Urine Urobilinogen Dipstick 0.2 mg/dL (0.2 mg/dL) Urine Leukocyte Esterase Negative (NEG) Urine RBC 3-5 /HPF (0-2) Urine WBC Occ /HPF (0-4) Urine Squamous Epithelial Cells Few /LPF Urine Bacteria 0 /HPF (0-FEW) Urine Hyaline Casts Occasional /HPF Urine Mucus Slight /LPF Medications Current Medications Ondansetron HCl (Zofran) 4 mg PRN Q8HRS PRN IV NAUSEA/VOMITING; Start 01/23/18 at 13:00; Stop 01/24/18 at 12:59; Status DC Acetaminophen (Tylenol) 650 mg PRN Q4HRS PRN PO FEVER; Start 01/23/18 at 13:00 ; Stop 01/24/18 at 12:59; Status DC Fentanyl Citrate (Fentanyl 2ml Vial) 50 mcg PRN Q4HRS PRN IV PAIN Last administered on 01/24/18at 04:20; Start 01/23/18 at 15:45 Dextrose/Lactated Ringer's 1,000 ml @ 100 mls/hr Q10H IV Last administered on 01/24/18at 08:50; Start 01/23/18 at 15:45; Stop 01/24/18 at 16:17; Status DC Bisacodyl (Dulcolax Supp) 10 mg PRN DAILY PRN IN CONSTIPATION, 1st RECTAL CHOIC Last administered on 01/23/18at 18:00; Start 01/23/18 at 15:45 Enoxaparin Sodium (Lovenox 30mg Syringe) 30 mg Q24H SQ Last administered on 02/01at 17:53; Start 01/23/18 at 16:00 Albuterol Sulfate (Ventolin Neb Soln) 2.5 mg RTQID NEB Last administered on 03/04at 07:18; Start 01/23/18 at 16:00 Acetaminophen (Tylenol) 1,300 mg Q8HRS PO Last administered on 01/25/18at 06:00 ; Start 01/23/18 at 22:00 Clonazepam (KlonoPIN) 0.5 mg PRN BID PRN PO ANXIETY / AGITATION Last administered on 01/24/18at 21:08; Start 01/23/18 at 18:15 Duloxetine HCl (Cymbalta) 30 mg DAILY PO Last administered on 01/25/18at 08:16 ; Start 01/24/18 at 09:00 Furosemide (Lasix) 20 mg DAILY PO Last administered on 01/24/18at 08:45; Start 01/24/18 at 09:00; Stop 01/24/18 at 16:17; Status DC Losartan Potassium (Cozaar) 50 mg DAILY PO Last administered on 01/25/18at 08: 17; Start 01/24/18 at 09:00 Metoprolol Tartrate (Lopressor) 25 mg BID PO Last administered on 01/25/18at 08 :17; Start 01/23/18 at 21:00 Diltiazem HCl (Cardizem 24hr Cd) 180 mg DAILY PO Last administered on at 08:15; Start 01/24/18 at 09:00 Trazodone HCl (Desyrel) 75 mg QHS PO Last administered on 01/24/18at 21:09; Start 01/23/18 at 21:00 Potassium Chloride/Water 100 ml @ 100 mls/hr Q1H IV Last administered on 01/24at 13:13; Start 01/24/18 at 07:00; Stop 01/24/18 at 10:59; Status DC Bisacodyl (Dulcolax Tab) 10 mg PRN DAILY PRN PO CONSTIPATION, 1st PO CHOICE Last administered on 01/24/18at 13:07; Start 01/24/18 at 12:00 Bisacodyl (Dulcolax Supp) 10 mg 1X ONCE IN Last administered on 01/24/18at 13: 08; Start 01/24/18 at 12:15; Stop 01/24/18 at 12:16; Status DC Docusate Sodium (Enemeez) 283 mg PRN DAILY PRN IN CONSTIPATION, 2nd RECTALCHOICE; Start 01/24/18 at 12:00 Diclofenac Sodium (Voltaren) 1 bridgette BID TP Last administered on 01/25/18at 08:19 ; Start 01/24/18 at 13:00 Bacitracin/ Polymyxin B Sulfate (Polysporin Ophth) 0.25 inch QID OS Last administered on 01/24/18at 21:46; Start 01/24/18 at 17:00 Influenza Virus Vaccine (Afluria Trivalent [id number] Syringe) 0.5 ml ONCE ONCE VAX IM Last administered on 01/24/18at 21:18; Start 01/24/18 at 19:30; Stop 01/24/18 at 19:33; Status DC Active Scripts Active Tylenol (Acetaminophen) 325 Mg Tablet 1,300 Mg PO Q8HRS 30 Days Tylenol 8 hour - 650 mg take two tabs every 8 hours. Cozaar (Losartan Potassium) 50 Mg Tablet 50 Mg PO DAILY 30 Days Metoprolol Tartrate 25 Mg Tablet 25 Mg PO BID 30 Days Clonazepam 0.5 Mg Tablet 0.5 Mg PO PRN BID PRN Reported Furosemide 20 Mg Tablet 20 Mg PO Duloxetine Hcl 30 Mg Capsule. Diltiazeswathi 24HR Cd (Diltiazem Hcl) 180 Mg Cap.er.24h Fish Oil ([place]-3 Fatty Acids) 300 Mg Capsule 300 Mg PO Aspirin 325 Mg Tablet 1 Tab PO DAILY LAST DOSE GIVEN: DATE:06-24-15 TIME:8:30 a.m. NEXT DOSE DUE: DATE:06-25-15 TIME:8:30 a.m. Vitals/I & O Vital Sign - Last 24 Hours 01/24/18 01/24/18 01/24/18 01/24/18 10:43 11:38 15:18 15:35 Temp 97.6 97.6 97.6 97.6 Pulse 96 85 Resp 16 16 B/P (MAP) 131/67 (88) 142/74 (96) Pulse Ox 95 98 O2 Delivery Room Air Room Air Room Air Room Air 01/24/18 01/24/18 01/24/18 01/24/18 19:30 19:41 19:45 21:09 Temp 97.6 97.6 Pulse 83 83 Resp 18 B/P (MAP) 164/66 (98) 164/66 Pulse Ox 94 95 O2 Delivery Room Air Room Air Room Air 01/24/18 01/25/18 01/25/18 01/25/18 23:00 03:54 07:00 07:18 Temp 97.5 97.9 98.1 97.5 97.9 98.1 Pulse 80 80 98 Resp 18 18 16 B/P (MAP) 151/63 (92) 179/87 (117) 131/69 (89) Pulse Ox 94 94 95 95 O2 Delivery Room Air Room Air Room Air Room Air 01/25/18 01/25/18 01/25/18 08:15 08:17 08:17 Pulse 98 98 98 B/P (MAP) 131/69 131/69 131/69 Intake and Output 01/24/18 01/24/18 01/25/18 15:00 23:00 07:00 Intake Total 240 ml Balance 240 ml PAIGE HARVEY MD Jan 25, 2018 09:20
[2018-01-25 11:00] VITALS: BP 123/73
[2018-01-25 11:28] LABS: CALCIUM 8.9 mg/dL (8.5-10.1); CREATININE 1.1 mg/dL (0.6-1.0); GFR 57.1
[2018-01-25 11:30] LABS: POTASSIUM 2.7 mmol/L (3.5-5.1)
[2018-01-25 11:36] LABS: BASO % 1 % (0-3); EOS # 0.2 x10^3/uL (0.0-0.7); EOS % 3 % (0-3); HEMATOCRIT 34.4 % (36.0-47.0); HEMOGLOBIN 11.7 g/dL (12.0-15.5); LYMPH % 21 % (24-48); MEAN CORPUSCULAR HEMOGLOBIN 32 pg (25-35); MEAN CORPUSCULAR HGB CONC 34 g/dL (31-37); MEAN CORPUSCULAR VOLUME 92 fL (79-100); MONO # 0.5 x10^3/uL (0.0-1.1); MONO % 10 % (0-9); NEUT # 3.3 x10^3uL (1.8-7.7); NEUT % 65 % (31-73); PLATELET COUNT 227 x10^3/uL (140-400); RED BLOOD COUNT 3.73 x10^6/uL (3.50-5.40); RED CELL DISTRIBUTION WIDTH 12.7 % (11.5-14.5)
[2018-01-25] MEDS: clonazePAM 0.5 MG TABLET PO PRN ×2 (11:49→14:45)
[2018-01-25] MEDS ORDERED: POTASSIUM CL 40MEQ IN 0.9%NACL 1,000 ML IV ONE (12:00)
[2018-01-25] MEDS ORDERED: POTASSIUM CHLORIDE 20 MEQ TABLET.ER. PO ONE (12:00)
[2018-01-25] MEDS: ENOXAPARIN 30 MG/0.3 ML SYRINGE. SQ SCH (16:00)
--- NOTE | 2018-01-25 17:39 | PDOC ---
PROGRESS NOTES Subjective severe sundowning last night, refused some meds this am and agitated but better Objective Afebrile General: confused Heart: RRR CHEST: tenderness right side Lungs: CTA Abd: soft, having BMs Ext: no edema Vital Signs Vital Signs Date Time Temp Pulse Resp B/P (MAP) Pulse Ox O2 Delivery O2 Flow Rate FiO2 01/25/18 15:00 Room Air 01/25/18 11:11 95 01/25/18 11:00 98.1 81 18 123/73 (90) 98.1 I & O Intake and Output 01/25/18 07:00 Intake Total 240 ml Balance 240 ml Intake Oral 240 ml # Voids 10 # Bowel Movements 2 Assessment and Plan 1. Multiple right rib fractures from fall in bathroom at home. She is admitted for pain control which is now achieved with Tylenol, PT/OT, Physiatry consult, daughter agreeable to SNU 2. Ileus, atonic. She was kept n.p.o. overnight, started on IV hydration and now having BMs so will start GI soft diet and stop fluids 3. Dementia with depression, recently started on trazodone which caused sundowning last alexis so will discontinue. 4. Hypertension. Continue her home meds. 5. Coronary artery disease, currently asymptomatic. 6. History of lumbar spinal stenosis and back pain. 7. Fibromyalgia. She was recently been taken off of duloxetine, will resume. 8. History of B12 deficiency, on replacement with a recent office B12 level of over 1000. 9. Type 2 diabetes with recent office A1c of 5.8, diet controlled. 10. Acute renal failure from ATN, resolved with IV hydration 11. recent UTI 12. shoulder pain - hx of replacements, continue therapy Ino OCAMPO MD Jan 25, 2018 17:39
[2018-01-25 19:00] VITALS: BP 143/71
[2018-01-25 23:00] VITALS: BP 125/60
[2018-01-26 03:00] VITALS: BP 135/71
[2018-01-26 06:02] LABS: BASO % 1 % (0-3); EOS # 0.2 x10^3/uL (0.0-0.7); EOS % 7 % (0-3); HEMATOCRIT 33.3 % (36.0-47.0); HEMOGLOBIN 11.4 g/dL (12.0-15.5); LYMPH # 1.3 x10^3/uL (1.0-4.8); LYMPH % 36 % (24-48); MEAN CORPUSCULAR HEMOGLOBIN 32 pg (25-35); MEAN CORPUSCULAR HGB CONC 34 g/dL (31-37); MEAN CORPUSCULAR VOLUME 94 fL (79-100); MONO # 0.4 x10^3/uL (0.0-1.1); MONO % 11 % (0-9); NEUT # 1.5 x10^3uL (1.8-7.7); NEUT % 45 % (31-73); PLATELET COUNT 233 x10^3/uL (140-400); RED BLOOD COUNT 3.56 x10^6/uL (3.50-5.40); RED CELL DISTRIBUTION WIDTH 12.9 % (11.5-14.5); WHITE BLOOD COUNT 3.4 x10^3/uL (4.0-11.0)
[2018-01-26 06:15] LABS: CREATININE 1.1 mg/dL (0.6-1.0); GFR 57.1; POTASSIUM 3.2 mmol/L (3.5-5.1)
[2018-01-26] MEDS: ACETAMINOPHEN 325 MG TABLET. PO SCH ×3 (06:16→21:00)
[2018-01-26 07:00] VITALS: BP 113/62
[2018-01-26] MEDS: ALBUTEROL SULFATE 2.5 MG/3 ML NEBU. NEB SCH ×4 (07:18→20:18)
[2018-01-26] MEDS: METOPROLOL TART IMMED RELEASE 25 MG TABLET. PO SCH ×2 (09:00→21:01)
[2018-01-26] MEDS: DICLOFENAC SODIUM 1% TOPICAL GEL 100GM TUBE. TP SCH ×2 (09:00→21:00)
[2018-01-26] MEDS: LOSARTAN POTASSIUM 50 MG TABLET. PO SCH (09:00)
--- NOTE | 2018-01-26 09:11 | PDOC3 ---
Discharge Summary IPC Final Diagnosis Problems Medical Problems: (1) Partial bowel obstruction Status: Acute Brief Hospital Course Ms. Mccarty is a 87 old [sex] who presented with [ ] Patient History: Family history: Angina (situation) G8 BROTHER Family history: Autoimmune disease (situation) 32 MOTHER G8 BROTHER G8 BROTHER Family history: Blood disorder (situation) G8 SISTER Family history: Cardiovascular disease (situation) 33 FATHER Family history: Diabetes mellitus (situation) G8 SISTER Family history: Gastrointestinal disease (situation) 32 MOTHER CONDITION AT DISCHARGE: Stable Scheduled Acetaminophen (Tylenol), 1,300 MG PO Q8HRS Aspirin (Aspirin), 1 TAB PO DAILY, (Reported) Losartan Potassium (Cozaar), 50 MG PO DAILY Metoprolol Tartrate (Metoprolol Tartrate), 25 MG PO BID Scheduled PRN Clonazepam (Clonazepam), 0.5 MG PO PRN BID PRN for ANXIETY / AGITATION Miscellaneous Medications Diltiazem Hcl (Diltiazem 24HR Cd), (Reported) Duloxetine Hcl (Duloxetine Hcl), (Reported) Furosemide (Furosemide), 20 MG PO, (Reported) [place]-3 Fatty Acids (Fish Oil), 300 MG PO, (Reported) Ino OCAMPO MD Jan 26, 2018 09:11
--- NOTE | 2018-01-26 09:13 | PDOC ---
PROGRESS NOTES Subjective Subjective She had no new complaints. Objective Objective Vital Signs Date Time Temp Pulse Resp B/P (MAP) Pulse Ox O2 Delivery O2 Flow Rate FiO2 01/26/18 07:18 95 Room Air 01/26/18 07:00 97.8 68 18 113/62 (79) 97.8 Intake and Output 01/26/18 07:00 Intake Total 1185 ml Balance 1185 ml Intake Oral 360 ml Other 825 ml # Voids 3 Physical Exam Physical Exam She is awake and she requires some assistance with bed mobility and transfers and after being up she can walk with roller walker under supervision.Physical and occupational therapy did not see her secondary to lethargy in AM and hypokalemia. Assessment Assessment Problems Medical Problems: (1) Partial bowel obstruction Status: Acute Plan Plan of Care To SNF when medically stable. Comment Review of Relevant I have reviewed the following items yeison (where applicable) has been applied. Labs Laboratory Tests Test 01/25/18 10:55 01/26/18 04:40 White Blood Count 5.0 x10^3/uL (4.0-11.0) 3.4 x10^3/uL (4.0-11.0) Red Blood Count 3.73 x10^6/uL (3.50-5.40) 3.56 x10^6/uL (3.50-5.40) Hemoglobin 11.7 g/dL (12.0-15.5) 11.4 g/dL (12.0-15.5) Hematocrit 34.4 % (36.0-47.0) 33.3 % (36.0-47.0) Mean Corpuscular Volume 92 fL (79-100) 94 fL (79-100) Mean Corpuscular Hemoglobin 32 pg (25-35) 32 pg (25-35) Mean Corpuscular Hemoglobin Concent 34 g/dL (31-37) 34 g/dL (31-37) Red Cell Distribution Width 12.7 % (11.5-14.5) 12.9 % (11.5-14.5) Platelet Count 227 x10^3/uL (140-400) 233 x10^3/uL (140-400) Neutrophils (%) (Auto) 65 % (31-73) 45 % (31-73) Lymphocytes (%) (Auto) 21 % (24-48) 36 % (24-48) Monocytes (%) (Auto) 10 % (0-9) 11 % (0-9) Eosinophils (%) (Auto) 3 % (0-3) 7 % (0-3) Basophils (%) (Auto) 1 % (0-3) 1 % (0-3) Neutrophils # (Auto) 3.3 x10^3uL (1.8-7.7) 1.5 x10^3uL (1.8-7.7) Lymphocytes # (Auto) 1.0 x10^3/uL (1.0-4.8) 1.3 x10^3/uL (1.0-4.8) Monocytes # (Auto) 0.5 x10^3/uL (0.0-1.1) 0.4 x10^3/uL (0.0-1.1) Eosinophils # (Auto) 0.2 x10^3/uL (0.0-0.7) 0.2 x10^3/uL (0.0-0.7) Basophils # (Auto) 0.0 x10^3/uL (0.0-0.2) 0.0 x10^3/uL (0.0-0.2) Sodium Level 142 mmol/L (136-145) 144 mmol/L (136-145) Potassium Level 2.7 mmol/L (3.5-5.1) 3.2 mmol/L (3.5-5.1) Chloride Level 105 mmol/L (98-107) 110 mmol/L (98-107) Carbon Dioxide Level 26 mmol/L (21-32) 27 mmol/L (21-32) Anion Gap 11 (6-14) 7 (6-14) Blood Urea Nitrogen 10 mg/dL (7-20) 8 mg/dL (7-20) Creatinine 1.1 mg/dL (0.6-1.0) 1.1 mg/dL (0.6-1.0) Estimated GFR (Cockcroft-Gault) 57.1 57.1 Glucose Level 112 mg/dL (70-99) 84 mg/dL (70-99) Calcium Level 8.9 mg/dL (8.5-10.1) 9.0 mg/dL (8.5-10.1) Laboratory Tests Test 01/25/18 10:55 01/26/18 04:40 White Blood Count 5.0 x10^3/uL (4.0-11.0) 3.4 x10^3/uL (4.0-11.0) Red Blood Count 3.73 x10^6/uL (3.50-5.40) 3.56 x10^6/uL (3.50-5.40) Hemoglobin 11.7 g/dL (12.0-15.5) 11.4 g/dL (12.0-15.5) Hematocrit 34.4 % (36.0-47.0) 33.3 % (36.0-47.0) Mean Corpuscular Volume 92 fL (79-100) 94 fL (79-100) Mean Corpuscular Hemoglobin 32 pg (25-35) 32 pg (25-35) Mean Corpuscular Hemoglobin Concent 34 g/dL (31-37) 34 g/dL (31-37) Red Cell Distribution Width 12.7 % (11.5-14.5) 12.9 % (11.5-14.5) Platelet Count 227 x10^3/uL (140-400) 233 x10^3/uL (140-400) Neutrophils (%) (Auto) 65 % (31-73) 45 % (31-73) Lymphocytes (%) (Auto) 21 % (24-48) 36 % (24-48) Monocytes (%) (Auto) 10 % (0-9) 11 % (0-9) Eosinophils (%) (Auto) 3 % (0-3) 7 % (0-3) Basophils (%) (Auto) 1 % (0-3) 1 % (0-3) Neutrophils # (Auto) 3.3 x10^3uL (1.8-7.7) 1.5 x10^3uL (1.8-7.7) Lymphocytes # (Auto) 1.0 x10^3/uL (1.0-4.8) 1.3 x10^3/uL (1.0-4.8) Monocytes # (Auto) 0.5 x10^3/uL (0.0-1.1) 0.4 x10^3/uL (0.0-1.1) Eosinophils # (Auto) 0.2 x10^3/uL (0.0-0.7) 0.2 x10^3/uL (0.0-0.7) Basophils # (Auto) 0.0 x10^3/uL (0.0-0.2) 0.0 x10^3/uL (0.0-0.2) Sodium Level 142 mmol/L (136-145) 144 mmol/L (136-145) Potassium Level 2.7 mmol/L (3.5-5.1) 3.2 mmol/L (3.5-5.1) Chloride Level 105 mmol/L (98-107) 110 mmol/L (98-107) Carbon Dioxide Level 26 mmol/L (21-32) 27 mmol/L (21-32) Anion Gap 11 (6-14) 7 (6-14) Blood Urea Nitrogen 10 mg/dL (7-20) 8 mg/dL (7-20) Creatinine 1.1 mg/dL (0.6-1.0) 1.1 mg/dL (0.6-1.0) Estimated GFR (Cockcroft-Gault) 57.1 57.1 Glucose Level 112 mg/dL (70-99) 84 mg/dL (70-99) Calcium Level 8.9 mg/dL (8.5-10.1) 9.0 mg/dL (8.5-10.1) Medications Current Medications Ondansetron HCl (Zofran) 4 mg PRN Q8HRS PRN IV NAUSEA/VOMITING; Start 01/23/18 at 13:00; Stop 01/24/18 at 12:59; Status DC Acetaminophen (Tylenol) 650 mg PRN Q4HRS PRN PO FEVER; Start 01/23/18 at 13:00 ; Stop 01/24/18 at 12:59; Status DC Fentanyl Citrate (Fentanyl 2ml Vial) 50 mcg PRN Q4HRS PRN IV PAIN Last administered on 01/24/18at 04:20; Start 01/23/18 at 15:45 Dextrose/Lactated Ringer's 1,000 ml @ 100 mls/hr Q10H IV Last administered on 01/24/18at 08:50; Start 01/23/18 at 15:45; Stop 01/24/18 at 16:17; Status DC Bisacodyl (Dulcolax Supp) 10 mg PRN DAILY PRN ND CONSTIPATION, 1st RECTAL CHOIC Last administered on 01/23/18at 18:00; Start 01/23/18 at 15:45 Enoxaparin Sodium (Lovenox 30mg Syringe) 30 mg Q24H SQ Last administered on 02/01at 17:53; Start 01/23/18 at 16:00 Albuterol Sulfate (Ventolin Neb Soln) 2.5 mg RTQID NEB Last administered on 04/03at 07:18; Start 01/23/18 at 16:00 Acetaminophen (Tylenol) 1,300 mg Q8HRS PO Last administered on 01/26/18at 06:16 ; Start 01/23/18 at 22:00 Clonazepam (KlonoPIN) 0.5 mg PRN BID PRN PO ANXIETY / AGITATION Last administered on 01/25/18at 14:45; Start 01/23/18 at 18:15 Duloxetine HCl (Cymbalta) 30 mg DAILY PO Last administered on 01/25/18at 08:16 ; Start 01/24/18 at 09:00 Furosemide (Lasix) 20 mg DAILY PO Last administered on 01/24/18at 08:45; Start 01/24/18 at 09:00; Stop 01/24/18 at 16:17; Status DC Losartan Potassium (Cozaar) 50 mg DAILY PO Last administered on 01/25/18at 08: 17; Start 01/24/18 at 09:00 Metoprolol Tartrate (Lopressor) 25 mg BID PO Last administered on 01/25/18at 21 :00; Start 01/23/18 at 21:00 Diltiazem HCl (Cardizem 24hr Cd) 180 mg DAILY PO Last administered on at 08:15; Start 01/24/18 at 09:00 Trazodone HCl (Desyrel) 75 mg QHS PO Last administered on 01/24/18at 21:09; Start 01/23/18 at 21:00; Stop 01/25/18 at 11:21; Status DC Potassium Chloride/Water 100 ml @ 100 mls/hr Q1H IV Last administered on 01/24at 13:13; Start 01/24/18 at 07:00; Stop 01/24/18 at 10:59; Status DC Bisacodyl (Dulcolax Tab) 10 mg PRN DAILY PRN PO CONSTIPATION, 1st PO CHOICE Last administered on 01/24/18at 13:07; Start 01/24/18 at 12:00 Bisacodyl (Dulcolax Supp) 10 mg 1X ONCE ND Last administered on 01/24/18at 13: 08; Start 01/24/18 at 12:15; Stop 01/24/18 at 12:16; Status DC Docusate Sodium (Enemeez) 283 mg PRN DAILY PRN ND CONSTIPATION, 2nd RECTALCHOICE; Start 01/24/18 at 12:00 Diclofenac Sodium (Voltaren) 1 bridgette BID TP Last administered on 01/25/18at 22:12 ; Start 01/24/18 at 13:00 Bacitracin/ Polymyxin B Sulfate (Polysporin Ophth) 0.25 inch QID OS Last administered on 01/25/18at 22:12; Start 01/24/18 at 17:00 Influenza Virus Vaccine (Afluria Trivalent 5329-0881 Syringe) 0.5 ml ONCE ONCE VAX IM Last administered on 01/24/18at 21:18; Start 01/24/18 at 19:30; Stop 01/24/18 at 19:33; Status DC Potassium Chloride/Sodium Chloride 1,000 ml @ 75 mls/hr 1X ONCE IV Last administered on 01/25/18at 12:48; Start 01/25/18 at 12:00; Stop 01/26/18 at 01 :19; Status DC Potassium Chloride (Klor-Con) 20 meq 1X ONCE PO Last administered on at 12:47; Start 01/25/18 at 12:00; Stop 01/25/18 at 12:01; Status DC Active Scripts Active Tylenol (Acetaminophen) 325 Mg Tablet 1,300 Mg PO Q8HRS 30 Days Tylenol 8 hour - 650 mg take two tabs every 8 hours. Cozaar (Losartan Potassium) 50 Mg Tablet 50 Mg PO DAILY 30 Days Metoprolol Tartrate 25 Mg Tablet 25 Mg PO BID 30 Days Clonazepam 0.5 Mg Tablet 0.5 Mg PO PRN BID PRN Reported Furosemide 20 Mg Tablet 20 Mg PO Duloxetine Hcl 30 Mg Capsule.dr Smith 24HR Cd (Diltiazem Hcl) 180 Mg Cap.er.24h Fish Oil ([place]-3 Fatty Acids) 300 Mg Capsule 300 Mg PO Aspirin 325 Mg Tablet 1 Tab PO DAILY LAST DOSE GIVEN: DATE:06-24-15 TIME:8:30 a.m. NEXT DOSE DUE: DATE:06-25-15 TIME:8:30 a.m. Vitals/I & O Vital Sign - Last 24 Hours 01/25/18 01/25/18 01/25/18 01/25/18 11:00 11:11 15:00 19:00 Temp 98.1 98.3 98.1 98.3 Pulse 81 80 Resp 18 18 B/P (MAP) 123/73 (90) 143/71 (95) Pulse Ox 95 95 96 O2 Delivery Room Air Room Air Room Air Room Air 01/25/18 01/25/18 01/25/18 01/25/18 19:37 19:45 21:00 23:00 Temp 98.3 98.3 Pulse 81 79 Resp 16 B/P (MAP) 123/73 125/60 (81) Pulse Ox 95 88 O2 Delivery Room Air Room Air Room Air 01/26/18 01/26/18 01/26/18 03:00 07:00 07:18 Temp 96.1 97.8 96.1 97.8 Pulse 66 68 Resp 18 18 B/P (MAP) 135/71 (92) 113/62 (79) Pulse Ox 98 100 95 O2 Delivery Room Air Room Air Room Air Intake and Output 01/25/18 01/25/18 01/26/18 15:00 23:00 07:00 Intake Total 1185 ml Balance 1185 ml PAIGE HARVEY MD Jan 26, 2018 09:13
[2018-01-26] MEDS: DULoxetine HCL 30 MG CAPSULE.DR PO SCH (09:38)
[2018-01-26] MEDS: BACITRACIN/POLYMYXIN B OPHTH OINTMENT 3.5GM TUBE. OS SCH ×4 (09:38→21:00)
[2018-01-26 11:00] VITALS: BP 133/65
--- NOTE | 2018-01-26 12:23 | RAD ---
DIANDRA, 01/26/2018: HISTORY: Abdominal pain Comparison is made to a study from September 24, 2017. Overall bowel gas has diminished. There is a moderate amount gas in the stomach. There is mild residual gaseous distention of what appears to be the right colon. No organomegaly is seen. Scattered arterial calcifications are present. There is moderate degenerative change in the lumbar spine. IMPRESSION: 1. Mild gaseous distention of the stomach. 2. Mild residual gaseous prominence of the right colon. Electronically signed by: Eder Hernandez MD (01/26/2018 12:20 PM) [facility]
[2018-01-26] MEDS ORDERED: ROTI1PAT4 TD (14:11)
[2018-01-26] MEDS ORDERED: BISA5TAB4 PO (14:11)
--- NOTE | 2018-01-26 14:12 | DISCH ---
DISCHARGE DISCHARGE INFORMATION: FINAL DIAGNOSIS Problems Medical Problems: (1) Partial bowel obstruction Status: Acute CONDITION ON DISCHARGE: Stable CODE STATUS: Code Status: Full ALF: SNF STAY <30 DAYS: Yes POST DISCHARGE ORDERS: ACTIVITY ORDERS: Activity as tolerated WEIGHT BEARING STATUS: As tolerated BATHING ORDERS: Shower-keep dressing dry, No Tub Bath until see WOUND/INCISION CARE: Ice to area for comfort, Do not change dressing TREATMENT/EQUIPMENT ORDERS: ADAPTIVE EQUIPMENT NEEDED: None Physical Therapy For: Evalulation/Treatment Occupational Therapy For: Evaluation/Treatment DISCHARGE MEDICATIONS: Home Meds Active Scripts Acetaminophen (TYLENOL) 325 Mg Tablet, 1300 MG PO Q8HRS for 30 Days, #360 TAB Tylenol 8 hour - 650 mg take two tabs every 8 hours. Prov:SATISH DOMINGUEZ MD 07/18/17 Losartan Potassium (COZAAR) 50 Mg Tablet, 50 MG PO DAILY for 30 Days, #30 TAB Prov:SATISH DOMINGUEZ MD 07/18/17 Metoprolol Tartrate (METOPROLOL TARTRATE) 25 Mg Tablet, 25 MG PO BID for 30 Days , #60 TAB Prov:SATISH DOMINGUEZ MD 07/18/17 Clonazepam (CLONAZEPAM) 0.5 Mg Tablet, 0.5 MG PO PRN BID PRN for ANXIETY / AGITATION, #60 MG Prov:Ino OCAMPO MD 05/04/16 Reported Medications Furosemide (FUROSEMIDE) 20 Mg Tablet, 20 MG PO 07/15/17 Duloxetine Hcl (DULOXETINE HCL) 30 Mg Capsule. 07/14/17 Diltiazem Hcl (DILTIAZEM 24HR CD) 180 Mg Cap.er.24h 07/14/17 [place]-3 Fatty Acids (FISH OIL) 300 Mg Capsule, 300 MG PO 10/17/14 Aspirin (ASPIRIN) 325 Mg Tablet, 1 TAB PO DAILY for heart health, #30 TAB 5 Refills LAST DOSE GIVEN: DATE:06-24-15 TIME:8:30 a.m. NEXT DOSE DUE: DATE:06-25-15 TIME:8:30 a.m. 10/17/14 Ino OCAMPO MD Jan 26, 2018 14:12
[2018-01-26 15:00] VITALS: BP 152/71
--- NOTE | 2018-01-26 17:15 | PDOC ---
PROGRESS NOTES Subjective Waiting on SNU approval, needs it per therapy notes, she sat up with assist, transferred to chair and able to start on breakfast this am, pain controlled without narcotics, daughter requests she start on dementia patch which is placed on her discharge med list Objective Afebrile General: alert, not combative at all, cooperative Heart: RRR Lungs: CTA Abd: soft Ext: no edema Vital Signs Vital Signs Date Time Temp Pulse Resp B/P (MAP) Pulse Ox O2 Delivery O2 Flow Rate FiO2 01/26/18 15:01 97 Room Air 01/26/18 15:00 98.1 82 18 152/71 (98) 98.1 I & O Intake and Output 01/26/18 07:00 Intake Total 1185 ml Balance 1185 ml Intake Oral 360 ml Other 825 ml # Voids 3 Assessment and Plan 1. Multiple right rib fractures from fall in bathroom at home. She is admitted for pain control which is now achieved with Tylenol, PT/OT, Physiatry consult, daughter agreeable to SNU, waiting on approval. 2. Ileus, atonic. She was kept n.p.o. overnight initially and has had regular BMs since, started initially on IV hydration, tolerating GI soft diet. 3. Dementia with depression, recently started on trazodone which caused sundowning last alexis so will discontinue, daughter requesting we start Neupro patch which is added to her DC med list. 4. Hypertension, controlled. Continue her home meds. 5. Coronary artery disease, currently asymptomatic. 6. History of lumbar spinal stenosis and back pain. 7. Fibromyalgia. She was recently been taken off of duloxetine, will resume. 8. History of B12 deficiency, on replacement with a recent office B12 level of over 1000. 9. Type 2 diabetes with recent office A1c of 5.8, diet controlled. 10. Acute renal failure from ATN, resolved with IV hydration 11. recent UTI 12. shoulder pain - hx of replacements, continue therapy Ino OCAMPO MD Jan 26, 2018 17:15
[2018-01-26] MEDS: ENOXAPARIN 40 MG/0.4 ML SYRINGE. SQ SCH (17:18)
[2018-01-26 19:00] VITALS: BP 108/51
[2018-01-26] MEDS: clonazePAM 0.5 MG TABLET PO PRN (21:02)
[2018-01-26 23:00] VITALS: BP 122/49
[2018-01-27 03:00] VITALS: BP 127/62
[2018-01-27] MEDS: ACETAMINOPHEN 325 MG TABLET. PO SCH ×3 (06:00→21:01)
[2018-01-27 07:45] VITALS: BP 156/77
[2018-01-27] MEDS: ALBUTEROL SULFATE 2.5 MG/3 ML NEBU. NEB SCH ×4 (08:55→20:28)
[2018-01-27] MEDS: LOSARTAN POTASSIUM 50 MG TABLET. PO SCH (09:30)
[2018-01-27] MEDS: METOPROLOL TART IMMED RELEASE 25 MG TABLET. PO SCH ×2 (09:30→21:02)
[2018-01-27] MEDS: DICLOFENAC SODIUM 1% TOPICAL GEL 100GM TUBE. TP SCH ×2 (09:31→21:03)
[2018-01-27] MEDS: DULoxetine HCL 30 MG CAPSULE.DR PO SCH (09:31)
[2018-01-27] MEDS: BACITRACIN/POLYMYXIN B OPHTH OINTMENT 3.5GM TUBE. OS SCH ×4 (09:31→21:03)
--- NOTE | 2018-01-27 10:05 | PDOC ---
PROGRESS NOTES Subjective Subjective She admits continued abdominal discomfort and cloudiness of her memory. Objective Objective Vital Signs Date Time Temp Pulse Resp B/P (MAP) Pulse Ox O2 Delivery O2 Flow Rate FiO2 01/27/18 09:30 78 156/77 01/27/18 08:56 98 Room Air 01/27/18 07:45 97.7 24 97.7 Intake and Output 01/27/18 07:00 # Voids 8 Physical Exam Physical Exam She is awake,knew it's Monday but does not remember name of president.She continues with gaseous distension of her stomach and colon as for KUB done yesterday. She walked for 250' with physical therapy using roller walker. No bowel movement since . Assessment Assessment Problems Medical Problems: (1) Partial bowel obstruction Status: Acute Plan Plan of Care To work on her constipation and to SNF when medically stable. Comment Review of Relevant I have reviewed the following items yeison (where applicable) has been applied. Labs Laboratory Tests Test 01/25/18 10:55 01/26/18 04:40 01/27/18 07:53 White Blood Count 5.0 x10^3/uL (4.0-11.0) 3.4 x10^3/uL (4.0-11.0) Red Blood Count 3.73 x10^6/uL (3.50-5.40) 3.56 x10^6/uL (3.50-5.40) Hemoglobin 11.7 g/dL (12.0-15.5) 11.4 g/dL (12.0-15.5) Hematocrit 34.4 % (36.0-47.0) 33.3 % (36.0-47.0) Mean Corpuscular Volume 92 fL (79-100) 94 fL (79-100) Mean Corpuscular Hemoglobin 32 pg (25-35) 32 pg (25-35) Mean Corpuscular Hemoglobin Concent 34 g/dL (31-37) 34 g/dL (31-37) Red Cell Distribution Width 12.7 % (11.5-14.5) 12.9 % (11.5-14.5) Platelet Count 227 x10^3/uL (140-400) 233 x10^3/uL (140-400) Neutrophils (%) (Auto) 65 % (31-73) 45 % (31-73) Lymphocytes (%) (Auto) 21 % (24-48) 36 % (24-48) Monocytes (%) (Auto) 10 % (0-9) 11 % (0-9) Eosinophils (%) (Auto) 3 % (0-3) 7 % (0-3) Basophils (%) (Auto) 1 % (0-3) 1 % (0-3) Neutrophils # (Auto) 3.3 x10^3uL (1.8-7.7) 1.5 x10^3uL (1.8-7.7) Lymphocytes # (Auto) 1.0 x10^3/uL (1.0-4.8) 1.3 x10^3/uL (1.0-4.8) Monocytes # (Auto) 0.5 x10^3/uL (0.0-1.1) 0.4 x10^3/uL (0.0-1.1) Eosinophils # (Auto) 0.2 x10^3/uL (0.0-0.7) 0.2 x10^3/uL (0.0-0.7) Basophils # (Auto) 0.0 x10^3/uL (0.0-0.2) 0.0 x10^3/uL (0.0-0.2) Sodium Level 142 mmol/L (136-145) 144 mmol/L (136-145) Potassium Level 2.7 mmol/L (3.5-5.1) 3.2 mmol/L (3.5-5.1) Chloride Level 105 mmol/L (98-107) 110 mmol/L (98-107) Carbon Dioxide Level 26 mmol/L (21-32) 27 mmol/L (21-32) Anion Gap 11 (6-14) 7 (6-14) Blood Urea Nitrogen 10 mg/dL (7-20) 8 mg/dL (7-20) Creatinine 1.1 mg/dL (0.6-1.0) 1.1 mg/dL (0.6-1.0) Estimated GFR (Cockcroft-Gault) 57.1 57.1 Glucose Level 112 mg/dL (70-99) 84 mg/dL (70-99) Calcium Level 8.9 mg/dL (8.5-10.1) 9.0 mg/dL (8.5-10.1) Glucose (Fingerstick) 93 mg/dL (70-99) Laboratory Tests Test 01/27/18 07:53 Glucose (Fingerstick) 93 mg/dL (70-99) Medications Current Medications Ondansetron HCl (Zofran) 4 mg PRN Q8HRS PRN IV NAUSEA/VOMITING; Start 01/23/18 at 13:00; Stop 01/24/18 at 12:59; Status DC Acetaminophen (Tylenol) 650 mg PRN Q4HRS PRN PO FEVER; Start 01/23/18 at 13:00 ; Stop 01/24/18 at 12:59; Status DC Fentanyl Citrate (Fentanyl 2ml Vial) 50 mcg PRN Q4HRS PRN IV PAIN Last administered on 01/24/18at 04:20; Start 01/23/18 at 15:45; Stop 01/26/18 at 09: 11; Status DC Dextrose/Lactated Ringer's 1,000 ml @ 100 mls/hr Q10H IV Last administered on 01/24/18at 08:50; Start 01/23/18 at 15:45; Stop 01/24/18 at 16:17; Status DC Bisacodyl (Dulcolax Supp) 10 mg PRN DAILY PRN MD CONSTIPATION, 1st RECTAL CHOIC Last administered on 01/23/18at 18:00; Start 01/23/18 at 15:45 Enoxaparin Sodium (Lovenox 30mg Syringe) 30 mg Q24H SQ Last administered on 02/01at 17:53; Start 01/23/18 at 16:00; Stop 01/26/18 at 14:02; Status DC Albuterol Sulfate (Ventolin Neb Soln) 2.5 mg RTQID NEB Last administered on at 08:55; Start 01/23/18 at 16:00 Acetaminophen (Tylenol) 1,300 mg Q8HRS PO Last administered on 01/26/18at 21:00 ; Start 01/23/18 at 22:00 Clonazepam (KlonoPIN) 0.5 mg PRN BID PRN PO ANXIETY / AGITATION Last administered on 01/26/18at 21:02; Start 01/23/18 at 18:15 Duloxetine HCl (Cymbalta) 30 mg DAILY PO Last administered on 01/27/18 09:31 ; Start 01/24/18 at 09:00 Furosemide (Lasix) 20 mg DAILY PO Last administered on 01/24/18 08:45; Start 01/24/18 at 09:00; Stop 01/24/18 at 16:17; Status DC Losartan Potassium (Cozaar) 50 mg DAILY PO Last administered on 01/27/18 09: 30; Start 01/24/18 at 09:00 Metoprolol Tartrate (Lopressor) 25 mg BID PO Last administered on 01/27/18 09 :30; Start 01/23/18 at 21:00 Diltiazem HCl (Cardizem 24hr Cd) 180 mg DAILY PO Last administered on 09:30; Start 01/24/18 at 09:00 Trazodone HCl (Desyrel) 75 mg QHS PO Last administered on 01/24/18 21:09; Start 01/23/18 at 21:00; Stop 01/25/18 at 11:21; Status DC Potassium Chloride/Water 100 ml @ 100 mls/hr Q1H IV Last administered on 01/24 13:13; Start 01/24/18 at 07:00; Stop 01/24/18 at 10:59; Status DC Bisacodyl (Dulcolax Tab) 10 mg PRN DAILY PRN PO CONSTIPATION, 1st PO CHOICE Last administered on 01/24/18 13:07; Start 01/24/18 at 12:00 Bisacodyl (Dulcolax Supp) 10 mg 1X ONCE MD Last administered on 01/24/18 13: 08; Start 01/24/18 at 12:15; Stop 01/24/18 at 12:16; Status DC Docusate Sodium (Enemeez) 283 mg PRN DAILY PRN MD CONSTIPATION, 2nd RECTALCHOICE; Start 01/24/18 at 12:00 Diclofenac Sodium (Voltaren) 1 bridgette BID TP Last administered on 01/27/18 09:31 ; Start 01/24/18 at 13:00 Bacitracin/ Polymyxin B Sulfate (Polysporin Ophth) 0.25 inch QID OS Last administered on 01/27/18 09:31; Start 01/24/18 at 17:00 Influenza Virus Vaccine (Afluria Trivalent [id number] Syringe) 0.5 ml ONCE ONCE VAX IM Last administered on 01/24/18at 21:18; Start 01/24/18 at 19:30; Stop 01/24/18 at 19:33; Status DC Potassium Chloride/Sodium Chloride 1,000 ml @ 75 mls/hr 1X ONCE IV Last administered on 01/25/18at 12:48; Start 01/25/18 at 12:00; Stop 01/26/18 at 01 :19; Status DC Potassium Chloride (Klor-Con) 20 meq 1X ONCE PO Last administered on at 12:47; Start 01/25/18 at 12:00; Stop 01/25/18 at 12:01; Status DC Enoxaparin Sodium (Lovenox 40mg Syringe) 40 mg Q24H SQ Last administered on 04/03at 17:18; Start 01/26/18 at 16:00 Active Scripts Active Tylenol (Acetaminophen) 325 Mg Tablet 1,300 Mg PO Q8HRS 30 Days Tylenol 8 hour - 650 mg take two tabs every 8 hours. Cozaar (Losartan Potassium) 50 Mg Tablet 50 Mg PO DAILY 30 Days Metoprolol Tartrate 25 Mg Tablet 25 Mg PO BID 30 Days Clonazepam 0.5 Mg Tablet 0.5 Mg PO PRN BID PRN Reported Furosemide 20 Mg Tablet 20 Mg PO Duloxetine Hcl 30 Mg Capsule. Diltiazem 24HR Cd (Diltiazem Hcl) 180 Mg Cap.er.24h Fish Oil ([place]-3 Fatty Acids) 300 Mg Capsule 300 Mg PO Aspirin 325 Mg Tablet 1 Tab PO DAILY LAST DOSE GIVEN: DATE:06-24-15 TIME:8:30 a.m. NEXT DOSE DUE: DATE:06-25-15 TIME:8:30 a.m. Vitals/I & O Vital Sign - Last 24 Hours 01/26/18 01/26/18 01/26/18 01/26/18 11:00 11:52 15:00 15:01 Temp 97.5 98.1 97.5 98.1 Pulse 77 82 Resp 18 18 B/P (MAP) 133/65 (87) 152/71 (98) Pulse Ox 96 97 98 97 O2 Delivery Room Air Room Air Room Air Room Air 01/26/18 01/26/18 01/26/18 01/26/18 19:00 20:00 20:19 21:01 Temp 97.6 97.6 Pulse 98 98 Resp 18 B/P (MAP) 108/51 (70) 108/51 Pulse Ox 98 97 O2 Delivery Room Air Room Air Room Air 01/26/18 01/27/18 01/27/18 01/27/18 23:00 03:00 07:45 08:56 Temp 98.8 98.6 97.7 98.8 98.6 97.7 Pulse 82 82 78 Resp 18 16 24 B/P (MAP) 122/49 (73) 127/62 (83) 156/77 (103) Pulse Ox 95 97 96 98 O2 Delivery Room Air Room Air Room Air Room Air 01/27/18 01/27/18 01/27/18 09:30 09:30 09:30 Pulse 78 78 78 B/P (MAP) 156/77 156/77 156/77 PAIGE HARVEY MD Jan 27, 2018 10:05
[2018-01-27 11:23] VITALS: BP 151/85
--- NOTE | 2018-01-27 13:15 | PDOC ---
PROGRESS NOTES Subjective Subjective Patient reports some chest wall pain present, taking Tylenol for this. Objective Objective Vital Signs Date Time Temp Pulse Resp B/P (MAP) Pulse Ox O2 Delivery O2 Flow Rate FiO2 01/27/18 11:23 97.7 90 24 151/85 (107) 96 Room Air 97.7 Intake and Output 01/27/18 07:00 # Voids 8 Physical Exam Abdomen: Normal bowel sounds, Soft, No tenderness Heart: Regular rate Extremities: No edema General: Alert, No acute distress Lungs: Clear to auscultation Assessment Assessment Problems Medical Problems: (1) Partial bowel obstruction Status: Acute Plan Plan of Care 1. Fractured ribs - stable, continue scheduled Tylenol. 2. ileus - improved on KUB. Fair appetite, continue diet as tolerated. 3. hypokalemia - check lab today and replace as indicated. 4. HTN - controlled, continue present meds. 5. dementia - continue supportive care. 6. debility - PT recommending alf placement, apparently no plans made for this yet. Comment Review of Relevant I have reviewed the following items yeison (where applicable) has been applied. Labs Laboratory Tests Test 01/26/18 04:40 01/27/18 07:53 White Blood Count 3.4 x10^3/uL (4.0-11.0) Red Blood Count 3.56 x10^6/uL (3.50-5.40) Hemoglobin 11.4 g/dL (12.0-15.5) Hematocrit 33.3 % (36.0-47.0) Mean Corpuscular Volume 94 fL (79-100) Mean Corpuscular Hemoglobin 32 pg (25-35) Mean Corpuscular Hemoglobin Concent 34 g/dL (31-37) Red Cell Distribution Width 12.9 % (11.5-14.5) Platelet Count 233 x10^3/uL (140-400) Neutrophils (%) (Auto) 45 % (31-73) Lymphocytes (%) (Auto) 36 % (24-48) Monocytes (%) (Auto) 11 % (0-9) Eosinophils (%) (Auto) 7 % (0-3) Basophils (%) (Auto) 1 % (0-3) Neutrophils # (Auto) 1.5 x10^3uL (1.8-7.7) Lymphocytes # (Auto) 1.3 x10^3/uL (1.0-4.8) Monocytes # (Auto) 0.4 x10^3/uL (0.0-1.1) Eosinophils # (Auto) 0.2 x10^3/uL (0.0-0.7) Basophils # (Auto) 0.0 x10^3/uL (0.0-0.2) Sodium Level 144 mmol/L (136-145) Potassium Level 3.2 mmol/L (3.5-5.1) Chloride Level 110 mmol/L (98-107) Carbon Dioxide Level 27 mmol/L (21-32) Anion Gap 7 (6-14) Blood Urea Nitrogen 8 mg/dL (7-20) Creatinine 1.1 mg/dL (0.6-1.0) Estimated GFR (Cockcroft-Gault) 57.1 Glucose Level 84 mg/dL (70-99) Calcium Level 9.0 mg/dL (8.5-10.1) Glucose (Fingerstick) 93 mg/dL (70-99) Laboratory Tests Test 01/27/18 07:53 Glucose (Fingerstick) 93 mg/dL (70-99) Medications Current Medications Ondansetron HCl (Zofran) 4 mg PRN Q8HRS PRN IV NAUSEA/VOMITING; Start 01/23/18 at 13:00; Stop 01/24/18 at 12:59; Status DC Acetaminophen (Tylenol) 650 mg PRN Q4HRS PRN PO FEVER; Start 01/23/18 at 13:00 ; Stop 01/24/18 at 12:59; Status DC Fentanyl Citrate (Fentanyl 2ml Vial) 50 mcg PRN Q4HRS PRN IV PAIN Last administered on 01/24/18at 04:20; Start 01/23/18 at 15:45; Stop 01/26/18 at 09: 11; Status DC Dextrose/Lactated Ringer's 1,000 ml @ 100 mls/hr Q10H IV Last administered on 01/24/18at 08:50; Start 01/23/18 at 15:45; Stop 01/24/18 at 16:17; Status DC Bisacodyl (Dulcolax Supp) 10 mg PRN DAILY PRN [place] CONSTIPATION, 1st RECTAL CHOIC Last administered on 01/23/18at 18:00; Start 01/23/18 at 15:45 Enoxaparin Sodium (Lovenox 30mg Syringe) 30 mg Q24H SQ Last administered on 02/01at 17:53; Start 01/23/18 at 16:00; Stop 01/26/18 at 14:02; Status DC Albuterol Sulfate (Ventolin Neb Soln) 2.5 mg RTQID NEB Last administered on 08:55; Start 01/23/18 at 16:00 Acetaminophen (Tylenol) 1,300 mg Q8HRS PO Last administered on 01/26/18 21:00 ; Start 01/23/18 at 22:00 Clonazepam (KlonoPIN) 0.5 mg PRN BID PRN PO ANXIETY / AGITATION Last administered on 01/26/18 21:02; Start 01/23/18 at 18:15 Duloxetine HCl (Cymbalta) 30 mg DAILY PO Last administered on 01/27/18 09:31 ; Start 01/24/18 at 09:00 Furosemide (Lasix) 20 mg DAILY PO Last administered on 01/24/18at 08:45; Start 01/24/18 at 09:00; Stop 01/24/18 at 16:17; Status DC Losartan Potassium (Cozaar) 50 mg DAILY PO Last administered on 01/27/18 09: 30; Start 01/24/18 at 09:00 Metoprolol Tartrate (Lopressor) 25 mg BID PO Last administered on 01/27/18 09 :30; Start 01/23/18 at 21:00 Diltiazem HCl (Cardizem 24hr Cd) 180 mg DAILY PO Last administered on at 09:30; Start 01/24/18 at 09:00 Trazodone HCl (Desyrel) 75 mg QHS PO Last administered on 01/24/18 21:09; Start 01/23/18 at 21:00; Stop 01/25/18 at 11:21; Status DC Potassium Chloride/Water 100 ml @ 100 mls/hr Q1H IV Last administered on 01/24 13:13; Start 01/24/18 at 07:00; Stop 01/24/18 at 10:59; Status DC Bisacodyl (Dulcolax Tab) 10 mg PRN DAILY PRN PO CONSTIPATION, 1st PO CHOICE Last administered on 01/24/18at 13:07; Start 01/24/18 at 12:00 Bisacodyl (Dulcolax Supp) 10 mg 1X ONCE ID Last administered on 01/24/18at 13: 08; Start 01/24/18 at 12:15; Stop 01/24/18 at 12:16; Status DC Docusate Sodium (Enemeez) 283 mg PRN DAILY PRN ID CONSTIPATION, 2nd RECTALCHOICE; Start 01/24/18 at 12:00 Diclofenac Sodium (Voltaren) 1 bridgette BID TP Last administered on 01/27/18at 09:31 ; Start 01/24/18 at 13:00 Bacitracin/ Polymyxin B Sulfate (Polysporin Ophth) 0.25 inch QID OS Last administered on 01/27/18at 09:31; Start 01/24/18 at 17:00 Influenza Virus Vaccine (Afluria Trivalent [id number] Syringe) 0.5 ml ONCE ONCE VAX IM Last administered on 01/24/18at 21:18; Start 01/24/18 at 19:30; Stop 01/24/18 at 19:33; Status DC Potassium Chloride/Sodium Chloride 1,000 ml @ 75 mls/hr 1X ONCE IV Last administered on 01/25/18at 12:48; Start 01/25/18 at 12:00; Stop 01/26/18 at 01 :19; Status DC Potassium Chloride (Klor-Con) 20 meq 1X ONCE PO Last administered on at 12:47; Start 01/25/18 at 12:00; Stop 01/25/18 at 12:01; Status DC Enoxaparin Sodium (Lovenox 40mg Syringe) 40 mg Q24H SQ Last administered on 04/03at 17:18; Start 01/26/18 at 16:00 Active Scripts Active Tylenol (Acetaminophen) 325 Mg Tablet 1,300 Mg PO Q8HRS 30 Days Tylenol 8 hour - 650 mg take two tabs every 8 hours. Cozaar (Losartan Potassium) 50 Mg Tablet 50 Mg PO DAILY 30 Days Metoprolol Tartrate 25 Mg Tablet 25 Mg PO BID 30 Days Clonazepam 0.5 Mg Tablet 0.5 Mg PO PRN BID PRN Reported Furosemide 20 Mg Tablet 20 Mg PO Duloxetine Hcl 30 Mg Capsule. Diltiazem 24HR Cd (Diltiazem Hcl) 180 Mg Cap.er.24h Fish Oil ([place]-3 Fatty Acids) 300 Mg Capsule 300 Mg PO Aspirin 325 Mg Tablet 1 Tab PO DAILY LAST DOSE GIVEN: DATE:06-24-15 TIME:8:30 a.m. NEXT DOSE DUE: DATE:06-25-15 TIME:8:30 a.m. Vitals/I & O Vital Sign - Last 24 Hours 01/26/18 01/26/18 01/26/18 01/26/18 15:00 15:01 19:00 20:00 Temp 98.1 97.6 98.1 97.6 Pulse 82 98 Resp 18 18 B/P (MAP) 152/71 (98) 108/51 (70) Pulse Ox 98 97 98 O2 Delivery Room Air Room Air Room Air Room Air 01/26/18 01/26/18 01/26/18 01/27/18 20:19 21:01 23:00 03:00 Temp 98.8 98.6 98.8 98.6 Pulse 98 82 82 Resp 18 16 B/P (MAP) 108/51 122/49 (73) 127/62 (83) Pulse Ox 97 95 97 O2 Delivery Room Air Room Air Room Air 01/27/18 01/27/18 01/27/18 01/27/18 07:45 08:56 09:30 09:30 Temp 97.7 97.7 Pulse 78 78 78 Resp 24 B/P (MAP) 156/77 (103) 156/77 156/77 Pulse Ox 96 98 O2 Delivery Room Air Room Air 01/27/18 01/27/18 09:30 11:23 Temp 97.7 97.7 Pulse 78 90 Resp 24 B/P (MAP) 156/77 151/85 (107) Pulse Ox 96 O2 Delivery Room Air SATISH DOMINGUEZ MD Jan 27, 2018 13:15
[2018-01-27] MEDS: BISACODYL 5 MG TABLET.DR. PO PRN (13:42)
[2018-01-27 13:50] LABS: CALCIUM 9.9 mg/dL (8.5-10.1); CREATININE 1.1 mg/dL (0.6-1.0); GFR 57.1; POTASSIUM 3.7 mmol/L (3.5-5.1)
[2018-01-27 14:44] VITALS: BP 164/85
[2018-01-27] MEDS: BISACODYL 10 MG SUPP.RECT. PR PRN (17:23)
[2018-01-27] MEDS: ENOXAPARIN 40 MG/0.4 ML SYRINGE. SQ SCH (17:23)
[2018-01-27 19:52] VITALS: BP 141/86
[2018-01-27] MEDS: clonazePAM 0.5 MG TABLET PO PRN (21:07)
[2018-01-27 23:24] VITALS: BP 150/63
[2018-01-28 05:19] VITALS: BP 163/86
[2018-01-28] MEDS: ACETAMINOPHEN 325 MG TABLET. PO SCH ×3 (06:11→20:38)
[2018-01-28 07:00] VITALS: BP 149/66
[2018-01-28] MEDS: ALBUTEROL SULFATE 2.5 MG/3 ML NEBU. NEB SCH ×4 (07:22→19:35)
[2018-01-28] MEDS: METOPROLOL TART IMMED RELEASE 25 MG TABLET. PO SCH ×2 (08:37→20:38)
[2018-01-28] MEDS: LOSARTAN POTASSIUM 50 MG TABLET. PO SCH (08:37)
[2018-01-28] MEDS: DULoxetine HCL 30 MG CAPSULE.DR PO SCH (08:37)
[2018-01-28] MEDS: DICLOFENAC SODIUM 1% TOPICAL GEL 100GM TUBE. TP SCH ×2 (08:38→20:39)
[2018-01-28] MEDS: BACITRACIN/POLYMYXIN B OPHTH OINTMENT 3.5GM TUBE. OS SCH ×4 (08:38→20:39)
--- NOTE | 2018-01-28 10:27 | PDOC ---
PROGRESS NOTES Subjective Subjective Patient reports some soreness right chest, otherwise without complaint. Objective Objective Vital Signs Date Time Temp Pulse Resp B/P (MAP) Pulse Ox O2 Delivery O2 Flow Rate FiO2 01/28/18 08:37 74 149/66 01/28/18 07:23 96 Room Air 01/28/18 07:00 98.5 18 98.5 Intake and Output 01/28/18 07:00 Intake Total 360 ml Balance 360 ml Intake Oral 360 ml # Voids 6 # Bowel Movements 2 Physical Exam Abdomen: Normal bowel sounds, Soft, No tenderness Heart: Regular rate Extremities: No edema General: Alert, No acute distress Lungs: Clear to auscultation Assessment Assessment Problems Medical Problems: (1) Partial bowel obstruction Status: Acute Plan Plan of Care 1. Fractured ribs - stable, continue scheduled Tylenol. Patient appears comfortable at rest. 2. ileus - resolved, patient tolerating regular diet but poor appetite. 3. HTN - controlled, continue home meds. 4. dementia - at baseline, continue supportive care. 5. debility - anticipate transfer to long term when placement can be arranged. Discussed briefly with patient who does not object. Comment Review of Relevant I have reviewed the following items yeison (where applicable) has been applied. Labs Laboratory Tests Test 01/27/18 07:53 01/27/18 13:30 Glucose (Fingerstick) 93 mg/dL (70-99) Sodium Level 142 mmol/L (136-145) Potassium Level 3.7 mmol/L (3.5-5.1) Chloride Level 106 mmol/L (98-107) Carbon Dioxide Level 28 mmol/L (21-32) Anion Gap 8 (6-14) Blood Urea Nitrogen 10 mg/dL (7-20) Creatinine 1.1 mg/dL (0.6-1.0) Estimated GFR (Cockcroft-Gault) 57.1 Glucose Level 98 mg/dL (70-99) Calcium Level 9.9 mg/dL (8.5-10.1) Laboratory Tests Test 01/27/18 13:30 Sodium Level 142 mmol/L (136-145) Potassium Level 3.7 mmol/L (3.5-5.1) Chloride Level 106 mmol/L (98-107) Carbon Dioxide Level 28 mmol/L (21-32) Anion Gap 8 (6-14) Blood Urea Nitrogen 10 mg/dL (7-20) Creatinine 1.1 mg/dL (0.6-1.0) Estimated GFR (Cockcroft-Gault) 57.1 Glucose Level 98 mg/dL (70-99) Calcium Level 9.9 mg/dL (8.5-10.1) Medications Current Medications Ondansetron HCl (Zofran) 4 mg PRN Q8HRS PRN IV NAUSEA/VOMITING; Start 01/23/18 at 13:00; Stop 01/24/18 at 12:59; Status DC Acetaminophen (Tylenol) 650 mg PRN Q4HRS PRN PO FEVER; Start 01/23/18 at 13:00 ; Stop 01/24/18 at 12:59; Status DC Fentanyl Citrate (Fentanyl 2ml Vial) 50 mcg PRN Q4HRS PRN IV PAIN Last administered on 01/24/18at 04:20; Start 01/23/18 at 15:45; Stop 01/26/18 at 09: 11; Status DC Dextrose/Lactated Ringer's 1,000 ml @ 100 mls/hr Q10H IV Last administered on 01/24/18at 08:50; Start 01/23/18 at 15:45; Stop 01/24/18 at 16:17; Status DC Bisacodyl (Dulcolax Supp) 10 mg PRN DAILY PRN [place] CONSTIPATION, 1st RECTAL CHOIC Last administered on 01/27/18at 17:23; Start 01/23/18 at 15:45 Enoxaparin Sodium (Lovenox 30mg Syringe) 30 mg Q24H SQ Last administered on 02/01at 17:53; Start 01/23/18 at 16:00; Stop 01/26/18 at 14:02; Status DC Albuterol Sulfate (Ventolin Neb Soln) 2.5 mg RTQID NEB Last administered on at 07:22; Start 01/23/18 at 16:00 Acetaminophen (Tylenol) 1,300 mg Q8HRS PO Last administered on 01/28/18at 06:11 ; Start 01/23/18 at 22:00 Clonazepam (KlonoPIN) 0.5 mg PRN BID PRN PO ANXIETY / AGITATION Last administered on 01/27/18at 21:07; Start 01/23/18 at 18:15 Duloxetine HCl (Cymbalta) 30 mg DAILY PO Last administered on 01/28/18 08:37 ; Start 01/24/18 at 09:00 Furosemide (Lasix) 20 mg DAILY PO Last administered on 01/24/18at 08:45; Start 01/24/18 at 09:00; Stop 01/24/18 at 16:17; Status DC Losartan Potassium (Cozaar) 50 mg DAILY PO Last administered on 01/28/18 08: 37; Start 01/24/18 at 09:00 Metoprolol Tartrate (Lopressor) 25 mg BID PO Last administered on 01/28/18 08 :37; Start 01/23/18 at 21:00 Diltiazem HCl (Cardizem 24hr Cd) 180 mg DAILY PO Last administered on 08:37; Start 01/24/18 at 09:00 Trazodone HCl (Desyrel) 75 mg QHS PO Last administered on 01/24/18at 21:09; Start 01/23/18 at 21:00; Stop 01/25/18 at 11:21; Status DC Potassium Chloride/Water 100 ml @ 100 mls/hr Q1H IV Last administered on 01/24 13:13; Start 01/24/18 at 07:00; Stop 01/24/18 at 10:59; Status DC Bisacodyl (Dulcolax Tab) 10 mg PRN DAILY PRN PO CONSTIPATION, 1st PO CHOICE Last administered on 01/27/18at 13:42; Start 01/24/18 at 12:00 Bisacodyl (Dulcolax Supp) 10 mg 1X ONCE CA Last administered on 01/24/18at 13: 08; Start 01/24/18 at 12:15; Stop 01/24/18 at 12:16; Status DC Docusate Sodium (Enemeez) 283 mg PRN DAILY PRN [place] CONSTIPATION, 2nd RECTALCHOICE; Start 01/24/18 at 12:00 Diclofenac Sodium (Voltaren) 1 bridgette BID TP Last administered on 01/28/18 08:38 ; Start 01/24/18 at 13:00 Bacitracin/ Polymyxin B Sulfate (Polysporin Ophth) 0.25 inch QID OS Last administered on 01/28/18at 08:38; Start 01/24/18 at 17:00 Influenza Virus Vaccine (Afluria Trivalent [id number] Syringe) 0.5 ml ONCE ONCE VAX IM Last administered on 01/24/18at 21:18; Start 01/24/18 at 19:30; Stop 01/24/18 at 19:33; Status DC Potassium Chloride/Sodium Chloride 1,000 ml @ 75 mls/hr 1X ONCE IV Last administered on 01/25/18at 12:48; Start 01/25/18 at 12:00; Stop 01/26/18 at 01 :19; Status DC Potassium Chloride (Klor-Con) 20 meq 1X ONCE PO Last administered on at 12:47; Start 01/25/18 at 12:00; Stop 01/25/18 at 12:01; Status DC Enoxaparin Sodium (Lovenox 40mg Syringe) 40 mg Q24H SQ Last administered on at 17:23; Start 01/26/18 at 16:00 Active Scripts Active Tylenol (Acetaminophen) 325 Mg Tablet 1,300 Mg PO Q8HRS 30 Days Tylenol 8 hour - 650 mg take two tabs every 8 hours. Cozaar (Losartan Potassium) 50 Mg Tablet 50 Mg PO DAILY 30 Days Metoprolol Tartrate 25 Mg Tablet 25 Mg PO BID 30 Days Clonazepam 0.5 Mg Tablet 0.5 Mg PO PRN BID PRN Reported Furosemide 20 Mg Tablet 20 Mg PO Duloxetine Hcl 30 Mg Capsule. Diltiazeswathi 24HR Cd (Diltiazem Hcl) 180 Mg Cap.er.24h Fish Oil ([place]-3 Fatty Acids) 300 Mg Capsule 300 Mg PO Aspirin 325 Mg Tablet 1 Tab PO DAILY LAST DOSE GIVEN: DATE:06-24-15 TIME:8:30 a.m. NEXT DOSE DUE: DATE:06-25-15 TIME:8:30 a.m. Vitals/I & O Vital Sign - Last 24 Hours 01/27/18 01/27/18 01/27/18 01/27/18 11:23 14:44 14:58 19:52 Temp 97.7 97.9 98.1 97.7 97.9 98.1 Pulse 90 79 80 Resp 24 24 18 B/P (MAP) 151/85 (107) 164/85 (111) 141/86 (104) Pulse Ox 96 96 97 O2 Delivery Room Air Room Air Room Air Room Air 01/27/18 01/27/18 01/27/18 01/27/18 20:00 20:28 21:02 23:24 Temp 97.9 97.9 Pulse 80 74 Resp 16 B/P (MAP) 141/86 150/63 (92) Pulse Ox 95 O2 Delivery Room Air Room Air Room Air 01/28/18 01/28/18 01/28/18 01/28/18 03:00 05:19 07:00 07:23 Temp 97.9 98.5 97.9 98.5 Pulse 71 74 Resp 16 16 18 B/P (MAP) 163/86 (111) 149/66 (93) Pulse Ox 97 95 96 O2 Delivery Room Air Room Air Room Air 01/28/18 01/28/18 01/28/18 08:37 08:37 08:37 Pulse 74 74 74 B/P (MAP) 149/66 149/66 149/66 Intake and Output 01/27/18 01/27/18 01/28/18 15:00 23:00 07:00 Intake Total 360 ml Balance 360 ml SATISH DOMINGUEZ MD Jan 28, 2018 10:27
[2018-01-28 11:00] VITALS: BP 159/70
[2018-01-28 15:00] VITALS: BP 142/63
[2018-01-28] MEDS: ENOXAPARIN 40 MG/0.4 ML SYRINGE. SQ SCH (18:00)
[2018-01-28 19:00] VITALS: BP 145/73
[2018-01-28] MEDS: clonazePAM 0.5 MG TABLET PO PRN (20:38)
[2018-01-28 22:36] VITALS: BP 137/62
[2018-01-29 03:00] VITALS: BP 138/71
[2018-01-29] MEDS: ACETAMINOPHEN 325 MG TABLET. PO SCH ×3 (06:08→21:12)
[2018-01-29 07:00] VITALS: BP 144/88
[2018-01-29] MEDS: ALBUTEROL SULFATE 2.5 MG/3 ML NEBU. NEB SCH ×4 (07:47→19:55)
[2018-01-29] MEDS: BACITRACIN/POLYMYXIN B OPHTH OINTMENT 3.5GM TUBE. OS SCH ×4 (09:31→21:13)
[2018-01-29] MEDS: DULoxetine HCL 30 MG CAPSULE.DR PO SCH (09:31)
[2018-01-29] MEDS: LOSARTAN POTASSIUM 50 MG TABLET. PO SCH (09:32)
[2018-01-29] MEDS: METOPROLOL TART IMMED RELEASE 25 MG TABLET. PO SCH ×2 (09:33→21:16)
[2018-01-29] MEDS: DICLOFENAC SODIUM 1% TOPICAL GEL 100GM TUBE. TP SCH ×2 (09:35→21:13)
--- NOTE | 2018-01-29 09:46 | PDOC ---
PROGRESS NOTES Subjective Subjective She admits some pain right rib cage area while trying to push off with her arm while getting up. Objective Objective Vital Signs Date Time Temp Pulse Resp B/P (MAP) Pulse Ox O2 Delivery O2 Flow Rate FiO2 01/29/18 09:33 76 144/88 01/29/18 07:48 98 Room Air 01/29/18 07:00 98.7 18 98.7 Intake and Output 01/29/18 07:00 # Voids 2 Physical Exam Physical Exam She is comfortable and awake and she got up and walked with roller walker with physical therapy some discomfort in her left knee while taking first few steps. Assessment Assessment Problems Medical Problems: (1) Partial bowel obstruction Status: Acute Plan Plan of Care Agree with plans for transfer to SNF when medically stable. Comment Review of Relevant I have reviewed the following items yeison (where applicable) has been applied. Labs Laboratory Tests Test 01/27/18 13:30 Sodium Level 142 mmol/L (136-145) Potassium Level 3.7 mmol/L (3.5-5.1) Chloride Level 106 mmol/L (98-107) Carbon Dioxide Level 28 mmol/L (21-32) Anion Gap 8 (6-14) Blood Urea Nitrogen 10 mg/dL (7-20) Creatinine 1.1 mg/dL (0.6-1.0) Estimated GFR (Cockcroft-Gault) 57.1 Glucose Level 98 mg/dL (70-99) Calcium Level 9.9 mg/dL (8.5-10.1) Medications Current Medications Ondansetron HCl (Zofran) 4 mg PRN Q8HRS PRN IV NAUSEA/VOMITING; Start 01/23/18 at 13:00; Stop 01/24/18 at 12:59; Status DC Acetaminophen (Tylenol) 650 mg PRN Q4HRS PRN PO FEVER; Start 01/23/18 at 13:00 ; Stop 01/24/18 at 12:59; Status DC Fentanyl Citrate (Fentanyl 2ml Vial) 50 mcg PRN Q4HRS PRN IV PAIN Last administered on 01/24/18at 04:20; Start 01/23/18 at 15:45; Stop 01/26/18 at 09: 11; Status DC Dextrose/Lactated Ringer's 1,000 ml @ 100 mls/hr Q10H IV Last administered on 01/24/18 08:50; Start 01/23/18 at 15:45; Stop 01/24/18 at 16:17; Status DC Bisacodyl (Dulcolax Supp) 10 mg PRN DAILY PRN MD CONSTIPATION, 1st RECTAL CHOIC Last administered on 01/27/18 17:23; Start 01/23/18 at 15:45 Enoxaparin Sodium (Lovenox 30mg Syringe) 30 mg Q24H SQ Last administered on 17:53; Start 01/23/18 at 16:00; Stop 01/26/18 at 14:02; Status DC Albuterol Sulfate (Ventolin Neb Soln) 2.5 mg RTQID NEB Last administered on 07:47; Start 01/23/18 at 16:00 Acetaminophen (Tylenol) 1,300 mg Q8HRS PO Last administered on 01/29/18 06:08 ; Start 01/23/18 at 22:00 Clonazepam (KlonoPIN) 0.5 mg PRN BID PRN PO ANXIETY / AGITATION Last administered on 01/28/18at 20:38; Start 01/23/18 at 18:15 Duloxetine HCl (Cymbalta) 30 mg DAILY PO Last administered on 01/29/18 09:31 ; Start 01/24/18 at 09:00 Furosemide (Lasix) 20 mg DAILY PO Last administered on 01/24/18 08:45; Start 01/24/18 at 09:00; Stop 01/24/18 at 16:17; Status DC Losartan Potassium (Cozaar) 50 mg DAILY PO Last administered on 01/29/18 09: 32; Start 01/24/18 at 09:00 Metoprolol Tartrate (Lopressor) 25 mg BID PO Last administered on 01/29/18 09 :33; Start 01/23/18 at 21:00 Diltiazem HCl (Cardizem 24hr Cd) 180 mg DAILY PO Last administered on 09:31; Start 01/24/18 at 09:00 Trazodone HCl (Desyrel) 75 mg QHS PO Last administered on 01/24/18 21:09; Start 01/23/18 at 21:00; Stop 01/25/18 at 11:21; Status DC Potassium Chloride/Water 100 ml @ 100 mls/hr Q1H IV Last administered on 01/24at 13:13; Start 01/24/18 at 07:00; Stop 01/24/18 at 10:59; Status DC Bisacodyl (Dulcolax Tab) 10 mg PRN DAILY PRN PO CONSTIPATION, 1st PO CHOICE Last administered on 01/27/18at 13:42; Start 01/24/18 at 12:00 Bisacodyl (Dulcolax Supp) 10 mg 1X ONCE MD Last administered on 01/24/18at 13: 08; Start 01/24/18 at 12:15; Stop 01/24/18 at 12:16; Status DC Docusate Sodium (Enemeez) 283 mg PRN DAILY PRN MD CONSTIPATION, 2nd RECTALCHOICE; Start 01/24/18 at 12:00 Diclofenac Sodium (Voltaren) 1 bridgette BID TP Last administered on 01/29/18at 09:35 ; Start 01/24/18 at 13:00 Bacitracin/ Polymyxin B Sulfate (Polysporin Ophth) 0.25 inch QID OS Last administered on 01/29/18at 09:31; Start 01/24/18 at 17:00 Influenza Virus Vaccine (Afluria Trivalent [id number] Syringe) 0.5 ml ONCE ONCE VAX IM Last administered on 01/24/18at 21:18; Start 01/24/18 at 19:30; Stop 01/24/18 at 19:33; Status DC Potassium Chloride/Sodium Chloride 1,000 ml @ 75 mls/hr 1X ONCE IV Last administered on 01/25/18at 12:48; Start 01/25/18 at 12:00; Stop 01/26/18 at 01 :19; Status DC Potassium Chloride (Klor-Con) 20 meq 1X ONCE PO Last administered on at 12:47; Start 01/25/18 at 12:00; Stop 01/25/18 at 12:01; Status DC Enoxaparin Sodium (Lovenox 40mg Syringe) 40 mg Q24H SQ Last administered on at 18:00; Start 01/26/18 at 16:00 Active Scripts Active Tylenol (Acetaminophen) 325 Mg Tablet 1,300 Mg PO Q8HRS 30 Days Tylenol 8 hour - 650 mg take two tabs every 8 hours. Cozaar (Losartan Potassium) 50 Mg Tablet 50 Mg PO DAILY 30 Days Metoprolol Tartrate 25 Mg Tablet 25 Mg PO BID 30 Days Clonazepam 0.5 Mg Tablet 0.5 Mg PO PRN BID PRN Reported Furosemide 20 Mg Tablet 20 Mg PO Duloxetine Hcl 30 Mg Capsule. Diltiazem 24HR Cd (Diltiazem Hcl) 180 Mg Cap.er.24h Fish Oil ([place]-3 Fatty Acids) 300 Mg Capsule 300 Mg PO Aspirin 325 Mg Tablet 1 Tab PO DAILY LAST DOSE GIVEN: DATE:06-24-15 TIME:8:30 a.m. NEXT DOSE DUE: DATE:06-25-15 TIME:8:30 a.m. Vitals/I & O Vital Sign - Last 24 Hours 01/28/18 01/28/18 01/28/18 01/28/18 11:00 14:58 15:00 19:00 Temp 97.5 96.8 97.9 97.5 96.8 97.9 Pulse 72 85 82 Resp 18 18 19 B/P (MAP) 159/70 (99) 142/63 (89) 145/73 (97) Pulse Ox 98 96 95 O2 Delivery Room Air Room Air Room Air Room Air 01/28/18 01/28/18 01/28/18 01/28/18 19:35 20:00 20:38 22:36 Temp 97.6 97.6 Pulse 85 72 Resp 19 B/P (MAP) 142/63 137/62 (87) Pulse Ox 97 O2 Delivery Room Air Room Air Room Air 01/29/18 01/29/18 01/29/18 01/29/18 03:00 07:00 07:48 09:31 Temp 97.4 98.7 97.4 98.7 Pulse 69 76 76 Resp 18 18 B/P (MAP) 138/71 (93) 144/88 (106) 144/88 Pulse Ox 98 97 98 O2 Delivery Room Air Room Air Room Air 01/29/18 01/29/18 09:32 09:33 Pulse 76 76 B/P (MAP) 144/88 144/88 PAIGE HARVEY MD Jan 29, 2018 09:46
[2018-01-29 11:00] VITALS: BP 143/62
[2018-01-29 15:00] VITALS: BP 140/72
[2018-01-29] MEDS: ENOXAPARIN 40 MG/0.4 ML SYRINGE. SQ SCH (17:23)
[2018-01-29] MEDS: CARBAMIDE PEROXIDE 6.5% OTIC SOLUTION 15ML BOTTLE. AS PRN ×2 (17:24→21:13)
--- NOTE | 2018-01-29 17:48 | PDOC ---
PROGRESS NOTES Subjective She recognizes me and knows my name when I walk in her room but other memory lapses obvious, NAD, comfortable unless takes a deep breath Objective Afebrile General: comfortable when not active Heart: RRR Lungs: CTA Chest: right sided tenderness with palpation Abd: soft Ext: no edema Vital Signs Vital Signs Date Time Temp Pulse Resp B/P (MAP) Pulse Ox O2 Delivery O2 Flow Rate FiO2 01/29/18 15:17 Room Air 01/29/18 15:00 98.5 80 18 140/72 (94) 100 98.5 I & O Intake and Output 01/29/18 07:00 # Voids 2 Assessment and Plan 1. Multiple right rib fractures from fall in bathroom at home. She is admitted for pain control which is now achieved with Tylenol, PT/OT, Physiatry consult, daughter agreeable to SNU, waiting on approval. 2. Ileus, atonic. She was kept n.p.o. overnight initially and has had regular BMs since, started initially on IV hydration, tolerating GI soft diet. 3. Dementia with depression, recently started on trazodone which caused sundowning last alexis so will discontinue, daughter requesting we start Neupro patch which is added to her DC med list. 4. Hypertension, controlled. Continue her home meds. 5. Coronary artery disease, currently asymptomatic. 6. History of lumbar spinal stenosis and back pain. 7. Fibromyalgia. She was recently been taken off of duloxetine, will resume. 8. History of B12 deficiency, on replacement with a recent office B12 level of over 1000. 9. Type 2 diabetes with recent office A1c of 5.8, diet controlled. 10. Acute renal failure from ATN, resolved with IV hydration 11. recent UTI 12. shoulder pain - hx of replacements, continue therapy Ino OCAMPO MD Jan 29, 2018 17:48
[2018-01-29 19:00] VITALS: BP 152/69
[2018-01-29] MEDS: clonazePAM 0.5 MG TABLET PO PRN (21:12)
[2018-01-29 23:00] VITALS: BP_SYST 150; BP_SYST 58; BP_DIAS 58; BP_DIAS 69
[2018-01-30 03:00] VITALS: BP 159/88
[2018-01-30] MEDS: ACETAMINOPHEN 325 MG TABLET. PO SCH ×2 (05:32→14:07)
[2018-01-30 07:25] VITALS: BP 166/85
[2018-01-30] MEDS: ALBUTEROL SULFATE 2.5 MG/3 ML NEBU. NEB SCH ×2 (07:28→11:36)
[2018-01-30] MEDS: LOSARTAN POTASSIUM 50 MG TABLET. PO SCH (10:00)
[2018-01-30] MEDS: METOPROLOL TART IMMED RELEASE 25 MG TABLET. PO SCH (10:01)
[2018-01-30] MEDS: DULoxetine HCL 30 MG CAPSULE.DR PO SCH (10:02)
[2018-01-30] MEDS: BACITRACIN/POLYMYXIN B OPHTH OINTMENT 3.5GM TUBE. OS SCH ×2 (10:03→14:08)
[2018-01-30] MEDS: DICLOFENAC SODIUM 1% TOPICAL GEL 100GM TUBE. TP SCH (10:07)
--- NOTE | 2018-01-30 10:07 | PDOC ---
PROGRESS NOTES Subjective Subjective She feels better. Objective Objective Vital Signs Date Time Temp Pulse Resp B/P (MAP) Pulse Ox O2 Delivery O2 Flow Rate FiO2 01/30/18 07:29 Room Air 01/30/18 07:25 97.5 73 17 166/85 (112) 98 97.5 Intake and Output 01/30/18 07:00 Intake Total 940 ml Balance 940 ml Intake Oral 940 ml # Voids 9 Physical Exam Physical Exam She is alert and comfortable and walking with roller walker. Assessment Assessment Problems Medical Problems: (1) Partial bowel obstruction Status: Acute Plan Plan of Care To SNF when medically stable. Comment Review of Relevant I have reviewed the following items yeison (where applicable) has been applied. Medications Current Medications Ondansetron HCl (Zofran) 4 mg PRN Q8HRS PRN IV NAUSEA/VOMITING; Start 01/23/18 at 13:00; Stop 01/24/18 at 12:59; Status DC Acetaminophen (Tylenol) 650 mg PRN Q4HRS PRN PO FEVER; Start 01/23/18 at 13:00 ; Stop 01/24/18 at 12:59; Status DC Fentanyl Citrate (Fentanyl 2ml Vial) 50 mcg PRN Q4HRS PRN IV PAIN Last administered on 01/24/18at 04:20; Start 01/23/18 at 15:45; Stop 01/26/18 at 09: 11; Status DC Dextrose/Lactated Ringer's 1,000 ml @ 100 mls/hr Q10H IV Last administered on 01/24/18at 08:50; Start 01/23/18 at 15:45; Stop 01/24/18 at 16:17; Status DC Bisacodyl (Dulcolax Supp) 10 mg PRN DAILY PRN AK CONSTIPATION, 1st RECTAL CHOIC Last administered on 01/27/18at 17:23; Start 01/23/18 at 15:45 Enoxaparin Sodium (Lovenox 30mg Syringe) 30 mg Q24H SQ Last administered on 02/01at 17:53; Start 01/23/18 at 16:00; Stop 01/26/18 at 14:02; Status DC Albuterol Sulfate (Ventolin Neb Soln) 2.5 mg RTQID NEB Last administered on at 07:28; Start 01/23/18 at 16:00 Acetaminophen (Tylenol) 1,300 mg Q8HRS PO Last administered on 01/30/18at 05:32 ; Start 01/23/18 at 22:00 Clonazepam (KlonoPIN) 0.5 mg PRN BID PRN PO ANXIETY / AGITATION Last administered on 01/29/18 21:12; Start 01/23/18 at 18:15 Duloxetine HCl (Cymbalta) 30 mg DAILY PO Last administered on 01/29/18at 09:31 ; Start 01/24/18 at 09:00 Furosemide (Lasix) 20 mg DAILY PO Last administered on 01/24/18 08:45; Start 01/24/18 at 09:00; Stop 01/24/18 at 16:17; Status DC Losartan Potassium (Cozaar) 50 mg DAILY PO Last administered on 01/29/18 09: 32; Start 01/24/18 at 09:00 Metoprolol Tartrate (Lopressor) 25 mg BID PO Last administered on 01/29/18 21 :16; Start 01/23/18 at 21:00 Diltiazem HCl (Cardizem 24hr Cd) 180 mg DAILY PO Last administered on 09:31; Start 01/24/18 at 09:00 Trazodone HCl (Desyrel) 75 mg QHS PO Last administered on 01/24/18 21:09; Start 01/23/18 at 21:00; Stop 01/25/18 at 11:21; Status DC Potassium Chloride/Water 100 ml @ 100 mls/hr Q1H IV Last administered on 01/24 13:13; Start 01/24/18 at 07:00; Stop 01/24/18 at 10:59; Status DC Bisacodyl (Dulcolax Tab) 10 mg PRN DAILY PRN PO CONSTIPATION, 1st PO CHOICE Last administered on 01/27/18at 13:42; Start 01/24/18 at 12:00 Bisacodyl (Dulcolax Supp) 10 mg 1X ONCE AK Last administered on 01/24/18 13: 08; Start 01/24/18 at 12:15; Stop 01/24/18 at 12:16; Status DC Docusate Sodium (Enemeez) 283 mg PRN DAILY PRN [place] CONSTIPATION, 2nd RECTALCHOICE; Start 01/24/18 at 12:00 Diclofenac Sodium (Voltaren) 1 bridgette BID TP Last administered on 01/29/18at 21:13 ; Start 01/24/18 at 13:00 Bacitracin/ Polymyxin B Sulfate (Polysporin Ophth) 0.25 inch QID OS Last administered on 01/29/18at 21:13; Start 01/24/18 at 17:00 Influenza Virus Vaccine (Afluria Trivalent [id number] Syringe) 0.5 ml ONCE ONCE VAX IM Last administered on 01/24/18at 21:18; Start 01/24/18 at 19:30; Stop 01/24/18 at 19:33; Status DC Potassium Chloride/Sodium Chloride 1,000 ml @ 75 mls/hr 1X ONCE IV Last administered on 01/25/18at 12:48; Start 01/25/18 at 12:00; Stop 01/26/18 at 01 :19; Status DC Potassium Chloride (Klor-Con) 20 meq 1X ONCE PO Last administered on at 12:47; Start 01/25/18 at 12:00; Stop 01/25/18 at 12:01; Status DC Enoxaparin Sodium (Lovenox 40mg Syringe) 40 mg Q24H SQ Last administered on at 17:23; Start 01/26/18 at 16:00 Carbamide Peroxide (Debrox) 5 drop PRN BID PRN REMOVAL OF EAR WAX Last administered on 01/29/18at 21:13; Start 01/29/18 at 14:30; Stop 02/02/18 at 14 :29 Active Scripts Active Tylenol (Acetaminophen) 325 Mg Tablet 1,300 Mg PO Q8HRS 30 Days Tylenol 8 hour - 650 mg take two tabs every 8 hours. Cozaar (Losartan Potassium) 50 Mg Tablet 50 Mg PO DAILY 30 Days Metoprolol Tartrate 25 Mg Tablet 25 Mg PO BID 30 Days Clonazepam 0.5 Mg Tablet 0.5 Mg PO PRN BID PRN Reported Furosemide 20 Mg Tablet 20 Mg PO Duloxetine Hcl 30 Mg Capsule. Diltiaseda 24HR Cd (Diltiazem Hcl) 180 Mg Cap.er.24h Fish Oil (Railroad-3 Fatty Acids) 300 Mg Capsule 300 Mg PO Aspirin 325 Mg Tablet 1 Tab PO DAILY LAST DOSE GIVEN: DATE:3-9-16 TIME:8:30 a.m. NEXT DOSE DUE: DATE:06-25-15 TIME:8:30 a.m. Vitals/I & O Vital Sign - Last 24 Hours 01/29/18 01/29/18 01/29/18 01/29/18 11:00 11:39 15:00 15:17 Temp 98.6 98.5 98.6 98.5 Pulse 79 80 Resp 18 18 B/P (MAP) 143/62 (89) 140/72 (94) Pulse Ox 99 98 100 O2 Delivery Room Air Room Air Room Air Room Air 01/29/18 01/29/18 01/29/18 01/29/18 19:00 19:39 19:50 21:16 Temp 99.0 99.0 Pulse 79 80 Resp 18 B/P (MAP) 152/69 (96) 136/68 Pulse Ox 97 97 O2 Delivery Room Air Room Air Room Air 01/29/18 01/30/18 01/30/18 01/30/18 23:00 03:00 07:25 07:29 Temp 97.9 98.1 97.5 97.9 98.1 97.5 Pulse 77 74 73 Resp 18 18 17 B/P (MAP) 150/58 (88) 159/88 (111) 166/85 (112) Pulse Ox 94 97 98 O2 Delivery Room Air Room Air Room Air Room Air Intake and Output 01/29/18 01/29/18 01/30/18 15:00 23:00 07:00 Intake Total 350 ml 590 ml Balance 350 ml 590 ml PAIGE HARVEY MD Jan 30, 2018 10:07
[2018-01-30 10:29] VITALS: BP 149/76
--- NOTE | 2018-01-30 15:56 | PDOC3 ---
Discharge Summary [facility] Date of Admission: Jan 23, 2018 Discharge Date: Jan 30, 2018 Final Diagnosis 1. Multiple right rib fractures from fall at home 2. Ileus, atonic. . 3. Dementia with depression 4. Hypertension 5. Coronary artery disease. 6. History of lumbar spinal stenosis and back pain. 7. Fibromyalgia 8. History of B12 deficiency 9. Type 2 diabetes, diet controlled. 10. Acute renal failure from ATN 11. recent UTI 12. shoulder pain (13) Partial bowel obstruction CONSULTS Dr. Norton - Rehab medicine Procedures none Brief Hospital Course Ms. Mccarty is a 87 old who presented with: 1. Multiple right rib fractures from fall in bathroom at home. She wass admitted for pain control which is now achieved with Tylenol. PT/OT, Physiatry consult recommended SNU, daughter agreed to SNU. 2. Ileus, atonic initialy thought to be a partial small bowel obstruction. She was kept n.p.o. overnight initially and has had regular BMs since, started initially on IV hydration, tolerating GI soft diet. 3. Dementia with depression, recently started on trazodone which caused sundowning so was discontinued, daughter requesting we start Neupro patch which is added to her DC med list. Mood improved with resumption of Cymbalta 4. Hypertension, controlled. Continue her home meds. 5. Coronary artery disease, currently asymptomatic. 6. History of lumbar spinal stenosis and back pain. 7. Fibromyalgia. She was recently been taken off of duloxetine but it was resumed. 8. History of B12 deficiency, on replacement with a recent office B12 level of over 1000. 9. Type 2 diabetes with recent office A1c of 5.8, diet controlled. 10. Acute renal failure from ATN, resolved with IV hydration 11. recent UTI 12. shoulder pain - hx of replacements, continue therapy Patient History: Family history: Angina (situation) G8 BROTHER Family history: Autoimmune disease (situation) 32 MOTHER G8 BROTHER G8 BROTHER Family history: Blood disorder (situation) G8 SISTER Family history: Cardiovascular disease (situation) 33 FATHER Family history: Diabetes mellitus (situation) G8 SISTER Family history: Gastrointestinal disease (situation) 32 MOTHER [facility] CONDITION AT DISCHARGE: Improved, Stable Diet GI soft Scheduled Acetaminophen (Tylenol), 1,300 MG PO Q8HRS Aspirin (Aspirin), 1 TAB PO DAILY, (Reported) Losartan Potassium (Cozaar), 50 MG PO DAILY Metoprolol Tartrate (Metoprolol Tartrate), 25 MG PO BID Scheduled PRN Clonazepam (Clonazepam), 0.5 MG PO PRN BID PRN for ANXIETY / AGITATION Miscellaneous Medications Diltiazem Hcl (Diltiazem 24HR Cd), (Reported) Duloxetine Hcl (Duloxetine Hcl), (Reported) Furosemide (Furosemide), 20 MG PO, (Reported) [place]-3 Fatty Acids (Fish Oil), 300 MG PO, (Reported) Follow Up 1-2 weeks after SNU discharge Ino OCAMPO MD Jan 30, 2018 15:56
== END 2018-01-30 15:10 | DRG 388 ==
LOC: ER 10:54 → 4 NORTH 12:57
PROVIDERS: ADMIT Family Medicine; ATTEND Family Medicine
DX: K56.600 Partial intestinal obstruction, unspecified as to cause (principal); N17.0 Acute kidney failure with tubular necrosis; S22.41XA Multiple fractures of ribs, right side, initial encounter for closed fracture; F05 Delirium due to known physiological condition; J98.11 Atelectasis; K56.7 Ileus, unspecified; E11.9 Type 2 diabetes mellitus without complications; F03.90 Unspecified dementia, unspecified severity, without behavioral disturbance, psychotic disturbance, mood disturbance, and anxiety; F32.9 Major depressive disorder, single episode, unspecified; I10 Essential (primary) hypertension; I25.10 Atherosclerotic heart disease of native coronary artery without angina pectoris; M79.7 Fibromyalgia; Z96.612 Presence of left artificial shoulder joint; M48.061 Spinal stenosis, lumbar region without neurogenic claudication; M17.0 Bilateral primary osteoarthritis of knee; G89.29 Other chronic pain; W18.30XA Fall on same level, unspecified, initial encounter; M25.519 Pain in unspecified shoulder; E87.6 Hypokalemia; Z87.440 Personal history of urinary (tract) infections; Z82.49 Family history of ischemic heart disease and other diseases of the circulatory system; Z83.3 Family history of diabetes mellitus; Z88.8 Allergy status to other drugs, medicaments and biological substances; Z90.710 Acquired absence of both cervix and uterus; Z95.1 Presence of aortocoronary bypass graft; I25.2 Old myocardial infarction; Z91.041 Radiographic dye allergy status; Z79.82 Long term (current) use of aspirin; Z79.899 Other long term (current) drug therapy; Y93.89 Activity, other specified; Y99.8 Other external cause status
CPT/HCPCS: 36415; 71046; 71100; 73502; 74018; 74021; 74176; 80048; 81001; 82962; 84484; 85025; 90471; 90756; 93005; 94640; 94760; J1650; J3010; J3480; J7613; P9612; 97116; 97535; 99285-25; Q2035

== ENCOUNTER 2018-02-28 15:43 | Emergency (ER) | payer BC ==
[~2018-02-28] VITALS: Ht 157.5 cm; Wt 68.0 kg
[~2018-02-28 15:43] MED LIST changes: +BISA5TAB4 PO; +ROTI1PAT4 TD
--- NOTE | 2018-02-28 17:26 | RAD ---
Examination: VENOUS LOWER EXTREMITY LEFT History: LT LEG PAIN Comparison/Correlation: None Findings: Left lower extremity venous duplex ultrasound examination was performed. Compression and augmentation utilized. Left common femoral vein, superficial femoral vein, popliteal vein, posterior tibial vein, greater saphenous vein, peroneal and posterior tibial veins are normal with no thrombus. Normal compressibility and phasicity identified. Impression: No left lower extremity deep venous thrombus. Electronically signed by: Patricio Wellington MD (02/28/2018 5:23 PM) [facility]
--- NOTE | 2018-02-28 17:30 | PHYS DOC ---
Past Medical History Past Medical History: CAD, Heart Disease, Hypertension, [place], Renal Disease Additional Past Medical Histor: Kidney problems, Heart problems Past Surgical History: Coronary Bypass Surgery, Hysterectomy, Other Additional Past Surgical Histo: Foot, Bilateral shoulder Alcohol Use: None Drug Use: None Adult General Chief Complaint Chief Complaint: LOWER EXT PAIN HPI HPI Patient is a 87 year old AA female, accompanied by her daughter, with complaints of pain behind her left knee for the last month without any known injury. Pt denies any recent travel via air or car, fall, or injury. She denies any chest pain, shortness of breath, or leg swelling, warmth, or redness. Pt states that the pain has increased over the last week. Family reports history of arthritis. Review of Systems Review of Systems Constitutional: Denies fever or chills [] Respiratory: Denies shortness of breath [] Cardiovascular: No additional information not addressed in HPI [] Musculoskeletal: Denies back pain, see HPI Integument: Denies rash or skin lesions [] Neurologic: Denies headache, focal weakness or sensory changes [] All other systems were reviewed and found to be within normal limits, except as documented in this note. Allergies Allergies Allergies Coded Allergies Type Severity Reaction Last Updated Verified iodine Allergy Severe SWELLING 06/23/15 Yes hydrocodone Allergy Intermediate PRURITIS 05/02/16 Yes lisinopril Allergy Intermediate COUGH 06/22/15 Yes Physical Exam Physical Exam Constitutional: Well developed, well nourished, no acute distress, non-toxic appearance. [] HENT: Normocephalic, atraumatic, bilateral external ears normal, nose normal. [ ] Eyes: PERRLA, conjunctiva normal, no discharge. [] Cardiovascular:Heart rate regular rhythm, no murmur [] Lungs & Thorax: Bilateral breath sounds clear to auscultation [] Skin: Warm, dry, no erythema, no rash. [] Extremities: no cyanosis, no clubbing, ROM intact, no edema; L calf tender to palpation . [] Neurologic: Alert and oriented X 3, normal motor function, normal sensory function, no focal deficits noted. [] Psychologic: Affect normal, judgement normal, mood normal. [] Current Patient Data Vital Signs Vital Signs Date Time Temp Pulse Resp B/P (MAP) Pulse Ox O2 Delivery O2 Flow Rate FiO2 02/28/18 17:52 72 18 148/68 (94) 97 02/28/18 16:24 98.4 Room Air 98.4 EKG EKG [] Radiology/Procedures Radiology/Procedures PROCEDURE: VENOUS LOWER EXTREMITY LEFT Examination: VENOUS LOWER EXTREMITY LEFT History: LT LEG PAIN Comparison/Correlation: None Findings: Left lower extremity venous duplex ultrasound examination was performed. Compression and augmentation utilized. Left common femoral vein, superficial femoral vein, popliteal vein, posterior tibial vein, greater saphenous vein, peroneal and posterior tibial veins are normal with no thrombus. Normal compressibility and phasicity identified. Impression: No left lower extremity deep venous thrombus. [] Course & Med Decision Making Course & Med Decision Making Pertinent Labs and Imaging studies reviewed. (See chart for details) dx: L knee pain DDx: dvt, cellulitis Advised pt to Continue taking Tylenol as needed for pain. Recommend application of ice or heat, elevation, and rest of affected extremity. Follow-up with your primary care doctor in 1-2 days. Return to the ER if your symptoms worsen. Pt and her daughter verbalized an understanding of home care, medications, follow- up, and return to ED instructions and were in agreement with the plan of care. [] Dragon Disclaimer Dragon Disclaimer This electronic medical record was generated, in whole or in part, using a voice recognition dictation system. Departure Departure Impression: Primary Impression: Left knee pain Disposition: 01 HOME, SELF-CARE Condition: STABLE Referrals: Ino OCAMPO MD (PCP) Patient Instructions: Knee Pain, [id number] Additional Instructions: Continue taking Tylenol as needed for pain. Recommend application of ice or heat , elevation, and rest of affected extremity. Follow-up with your primary care doctor in 1-2 days. Return to the ER if your symptoms worsen. Problem Qualifiers Primary Impression: Left knee pain Chronicity: acute Qualified Codes: M25.562 - Pain in left knee KAREN SANTANA STAFF TOXICOLOGIST Feb 28, 2018 17:30
[2018-02-28 17:52] VITALS: BP 148/68
== END 2018-02-28 17:51 | disposition home or self-care (01) ==
LOC: ER 15:43
DX: M25.562 Pain in left knee (principal); I11.9 Hypertensive heart disease without heart failure; I25.810 Atherosclerosis of coronary artery bypass graft(s) without angina pectoris; I25.2 Old myocardial infarction; Z88.5 Allergy status to narcotic agent; Z91.041 Radiographic dye allergy status; Z88.8 Allergy status to other drugs, medicaments and biological substances
CPT/HCPCS: 93971; 99284

== ENCOUNTER 2018-11-19 13:04 | Emergency (ER) | payer BC ==
[~2018-11-19] VITALS: Ht 157.5 cm; Wt 68.0 kg
[~2018-11-19 13:04] MED LIST changes: -DULO30CA43; -DULO30CA43 PO; +DULO30CA44; +DULO30CA44 PO; +LINA5TAB PO; -LINA5TAB4 PO; +LOSA-73 PO; +LOSA100T14 PO; -LOSA100T7 PO; -LOSA50TA2 PO; -PANT40TA3 PO; +PANT40TA77 PO
[2018-11-19 13:40] VITALS: BP 120/58
[2018-11-19] MEDS ORDERED: AMOX500C PO (14:16)
--- NOTE | 2018-11-19 14:17 | PHYS DOC ---
Past Medical History Past Medical History: CAD, Heart Disease, Hypertension, [place], Renal Disease Additional Past Medical Histor: Kidney problems, Heart problems Past Surgical History: Coronary Bypass Surgery, Hysterectomy, Other Additional Past Surgical Histo: Foot, Bilateral shoulder Alcohol Use: None Drug Use: None Adult General Chief Complaint Chief Complaint: EARACHE/EAR PAIN [facility] HPI Patient is a 88 year old female who presents with 1 week of left ear pain and nasal congestion. Patient states she gets an aching pain that comes and goes and shoots over the back of the ear. She denies running fevers. Patient rates her pain an 8 out of 10 when the pain hits. Patient states she's not been taking anything but Tylenol for pain. Patient is a history of dementia, NE, CABG, chronic shoulder pain, CAD, hypertension, renal disease, hysterectomy. Review of Systems Review of Systems Constitutional: Denies fever or chills [] Eyes: Denies change in visual acuity, redness, or eye pain [] HENT: nasal congestion or denies sore throat. Left ear pain. [] Respiratory: Denies cough or shortness of breath [] Cardiovascular: No additional information not addressed in HPI [] GI: Denies abdominal pain, nausea, vomiting, bloody stools or diarrhea [] : Denies dysuria or hematuria [] Musculoskeletal: Denies back pain or joint pain [] Integument: Denies rash or skin lesions [] Neurologic: Denies headache, focal weakness or sensory changes [] All other systems were reviewed and found to be within normal limits, except as documented in this note. Allergies Allergies Allergies Coded Allergies Type Severity Reaction Last Updated Verified iodine Allergy Severe SWELLING 06/23/15 Yes hydrocodone Allergy Intermediate PRURITIS 05/02/16 Yes lisinopril Allergy Intermediate COUGH 06/22/15 Yes Physical Exam Physical Exam Constitutional: Well developed, well nourished, no acute distress, non-toxic appearance. [] HENT: Normocephalic, atraumatic, bilateral external ears normal, oropharynx moist, no oral exudates, nose normal. Left ear tympanic pink and boggy and tender to examination. Right ear tympanic is boggy.[] Eyes: PERRLA, EOMI, conjunctiva normal, no discharge. [] Neck: Normal range of motion, no tenderness, supple, no stridor. [] Cardiovascular:Heart rate regular rhythm, no murmur [] Lungs & Thorax: Bilateral breath sounds clear to auscultation [] Abdomen: Bowel sounds normal, soft, no tenderness, no masses, no pulsatile masses. [] Skin: Warm, dry, no erythema, no rash. [] Back: No tenderness, no CVA tenderness. [] Extremities: No tenderness, no cyanosis, no clubbing, ROM intact, no edema. [] Neurologic: Alert and oriented X 3, normal motor function, normal sensory function, no focal deficits noted. [] Psychologic: Affect normal, judgement normal, mood normal. [] Current Patient Data Vital Signs Vital Signs Date Time Temp Pulse Resp B/P (MAP) Pulse Ox O2 Delivery O2 Flow Rate FiO2 11/19/18 13:40 97.7 62 18 120/58 (78) 100 Room Air 97.7 EKG EKG [] Radiology/Procedures Radiology/Procedures [] Course & Med Decision Making Course & Med Decision Making Patient is a 88 year old female who presents with 1 week of left ear pain and nasal congestion. Patient states she gets an aching pain that comes and goes and shoots over the back of the ear. She denies running fevers. Patient rates her pain an 8 out of 10 when the pain hits. Patient states she's not been taking anything but Tylenol for pain. Patient is a history of dementia, NE, CABG, chronic shoulder pain, CAD, hypertension, renal disease, hysterectomy. The left ear is tender during examination and even when touching or moving the ear it causes the patient pain. Patient's tympanic membrane is pink and boggy in color the left ear. Patient's right ear tympanic is foggy in color but nontender and patient has no pain in that ear. Throat is pink and nonswollen there are no exudates. Vital signs are within normal limits. Lungs are clear to auscultation all lobes. PERRLA. Patient denies headache, nausea, vomiting, abdominal pain, shortness of air, dizziness, chest pain, weakness, numbness or tingling, visual changes, dysuria. 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 No extremity edema. PERRLA. Skin is pink warm and dry. Alert and oriented. She'll follow primary care physician. Patient is given antibiotic and to take Tylenol for pain. Dragjayro Disclaimer Dragon Disclaimer This electronic medical record was generated, in whole or in part, using a voice recognition dictation system. Departure Departure Impression: Primary Impression: Earache on left Disposition: 01 HOME, SELF-CARE Condition: STABLE Referrals: Ino OCAMPO MD (PCP) Patient Instructions: Otitis Media, Adult Additional Instructions: Follow up with primary care provider. Take medication as prescribed. Scripts Amoxicillin (AMOXICILLIN) 500 Mg Capsule 1 CAP PO BID for 10 Days, #20 CAP Prov: LETTY THOMAS APRN 11/19/18 LETTY THOMAS APRN Nov 19, 2018 14:17
== END 2018-11-19 14:25 | disposition home or self-care (01) ==
LOC: ER 13:04
DX: H92.02 Otalgia, left ear (principal); R09.81 Nasal congestion; I11.9 Hypertensive heart disease without heart failure; I25.2 Old myocardial infarction; I25.10 Atherosclerotic heart disease of native coronary artery without angina pectoris; N28.9 Disorder of kidney and ureter, unspecified; Z90.710 Acquired absence of both cervix and uterus; Z95.1 Presence of aortocoronary bypass graft; Z88.5 Allergy status to narcotic agent; Z88.8 Allergy status to other drugs, medicaments and biological substances
CPT/HCPCS: 99283

== ENCOUNTER 2019-01-23 08:39 | Emergency (ER) | payer BC ==
[~2019-01-23] VITALS: Ht 157.5 cm; Wt 81.6 kg
[~2019-01-23 08:39] MED LIST changes: +AMOX500C PO; +CLON-77 PO; -CLON0.5T11 PO
--- NOTE | 2019-01-23 09:21 | EKG ---
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
[2019-01-23 09:26] LABS: BILIRUBIN,URINE NEGATIVE (NEG); CLARITY,URINE CLEAR; COLOR,URINE YELLOW; NITRITE,URINE NEGATIVE (NEG); PROTEIN,URINE NEGATIVE (NEG-TRACE); UROBILINOGEN,URINE 0.2 mg/dL (0.2 mg/dL)
[2019-01-23 09:32] LABS: RBC,URINE OCC /HPF (0-2); WBC,URINE OCC /HPF (0-4)
[2019-01-23 09:33] LABS: BACTERIA,URINE 0 /HPF (0-FEW); HYALINE CASTS, URINE MODERATE /HPF; SQUAMOUS EPITHELIAL CELL,UR FEW /LPF
[2019-01-23 09:34] VITALS: BP 144/67
--- NOTE | 2019-01-23 09:34 | RAD ---
EXAM: CT Head without IV contrast CLINICAL HISTORY: confusion COMPARISON: CT head 02/21/2016 TECHNIQUE: Routine CT of the head without contrast. Soft tissues and bone windows were reviewed. PQRS compliance statement - One or more of the following individualized dose reduction techniques were utilized for this study: 1. Automated exposure control 2. Adjustment of the mA and/or kV according to patient size 3. Use of iterative reconstruction technique FINDINGS: There is no evidence of hemorrhage, mass or extra-axial fluid collection. Diffuse subcortical, periventricular and deep white matter, as well as pontine hypoattenuation may be seen with chronic small vessel disease. There is no mass effect or shift of the intracranial structures. The ventricles, basilar cisterns and cortical sulci are normal in size and configuration for the patients stated age. The cerebellum and brainstem are unremarkable. The calvarium demonstrates no evidence of fracture or focal lesion. There is normal aeration of the visualized paranasal sinuses and mastoid air cells. The visualized portions of the orbits are normal. IMPRESSION: 1. No evidence for acute intracranial process. 2. White matter changes may be seen with chronic small vessel disease. Electronically signed by: Cameron Goff MD (01/23/2019 9:30 AM) [id number]
[2019-01-23 09:41] LABS: BASO # 0.1 x10^3/uL (0.0-0.2); BASO % 2 % (0-3); EOS # 0.2 x10^3/uL (0.0-0.7); EOS % 4 % (0-3); HEMATOCRIT 39.6 % (36.0-47.0); HEMOGLOBIN 13.3 g/dL (12.0-15.5); LYMPH # 1.4 x10^3/uL (1.0-4.8); LYMPH % 27 % (24-48); MEAN CORPUSCULAR HEMOGLOBIN 31 pg (25-35); MEAN CORPUSCULAR HGB CONC 34 g/dL (31-37); MEAN CORPUSCULAR VOLUME 91 fL (79-100); MONO # 0.3 x10^3/uL (0.0-1.1); MONO % 6 % (0-9); NEUT # 3.1 x10^3/uL (1.8-7.7); NEUT % 61 % (31-73); PLATELET COUNT 266 x10^3/uL (140-400); RED BLOOD COUNT 4.36 x10^6/uL (3.50-5.40); WHITE BLOOD COUNT 5.2 x10^3/uL (4.0-11.0)
[2019-01-23 09:48] LABS: PROTHROMBIN TIME PATIENT 12.9 SEC (11.7-14.0)
--- NOTE | 2019-01-23 10:02 | RAD ---
PA and lateral views of the chest. Comparison: 01/23/2018. Indication: Confusion Findings: Sternotomy wires and CABG clips are reidentified. Bilateral reverse humeral arthroplasty changes are seen. The heart size is enlarged but stable, the aorta is calcified and tortuous. No pneumothorax or effusion. No air space or interstitial disease. The bony structures are intact. Impression: 1. No acute cardiopulmonary process. Electronically signed by: Sandeep Llamas MD (01/23/2019 9:59 AM) [id number]
--- NOTE | 2019-01-23 10:24 | PHYS DOC ---
Past Medical History Past Medical History: CAD, Heart Disease, Hypertension, [place], Renal Disease Additional Past Medical Histor: Kidney problems, Heart problems Past Surgical History: Coronary Bypass Surgery, Hysterectomy, Other Additional Past Surgical Histo: Foot, Bilateral shoulder Alcohol Use: None Drug Use: None Adult General Chief Complaint Chief Complaint: ALTERED MENTAL STATUS [facility] HPI Patient is a 88 year old female who presents with her daughter with complaining of "not acting like her usual". Patient lives at home by herself and has numerous visits and family members providing for her but for the last or 2 months she is not acting like her usual and is more confused and stated she wanted to go to work and lives at home and wondering in the neighbor. Patient's daughter states she thinks she has UTI because she had confusion with UTI previously. Patient was seen by her primary care physician after starting confusion and was told if she is getting worse, come to emergency room. Patient denies any pain and suicidal and homicidal ideation. Patient is alert and oriented 2. Review of Systems Review of Systems Constitutional: Denies fever or chills [] Eyes: Denies change in visual acuity, redness, or eye pain [] HENT: Denies nasal congestion or sore throat [] Respiratory: Denies cough or shortness of breath [] Cardiovascular: No additional information not addressed in HPI [] GI: Denies abdominal pain, nausea, vomiting, bloody stools or diarrhea [] : Denies dysuria or hematuria [] Musculoskeletal: Denies back pain or joint pain [] Integument: Denies rash or skin lesions [] Neurologic: Denies headache, focal weakness or sensory changes [] Endocrine: Denies polyuria or polydipsia [] All other systems were reviewed and found to be within normal limits, except as documented in this note. Current Medications Current Medications Current Medications Medications (Trade) Dose Ordered Sig/Kash Start Time Stop Time Status Last Admin Dose Admin Sodium Polystyrene Sulfonate (Kayexalate) 15 gm 1X ONCE 01/23/19 11:00 01/23/19 11:01 DC Allergies Allergies Allergies Coded Allergies Type Severity Reaction Last Updated Verified iodine Allergy Severe SWELLING 06/23/15 Yes hydrocodone Allergy Intermediate PRURITIS 05/02/16 Yes lisinopril Allergy Intermediate COUGH 06/22/15 Yes Physical Exam Physical Exam Constitutional: Well nourished, mild distress, non-toxic appearance. [] HENT: Normocephalic, atraumatic. Eyes: PERRLA, EOMI, conjunctiva normal, no discharge. [] Neck: Normal range of motion, no tenderness, supple, no stridor. [] Cardiovascular:Heart rate regular rhythm, no murmur [] Lungs & Thorax: Bilateral breath sounds clear to auscultation [] Abdomen: Bowel sounds normal, soft, no tenderness, no masses, no pulsatile masses. [] Skin: Warm, dry, no erythema, no rash. [] Back: No tenderness, no CVA tenderness. [] Extremities: No tenderness, no cyanosis, no clubbing, ROM intact, no edema. [] Neurologic: Alert and oriented X 2, no focal deficits noted. [] Psychologic: Affect normal, mood normal. [] Current Patient Data Vital Signs Vital Signs Date Time Temp Pulse Resp B/P (MAP) Pulse Ox O2 Delivery O2 Flow Rate FiO2 01/23/19 08:53 97.9 66 14 155/74 (101) 98 Room Air 97.9 Lab Values Laboratory Tests Test 01/23/19 09:13 01/23/19 09:31 01/23/19 10:05 Urine Collection Type Unknown Urine Color Yellow Urine Clarity Clear Urine pH 6.0 Urine Specific [place] 1.020 Urine Protein Negative mg/dL (NEG-TRACE) Urine Glucose (UA) Negative mg/dL (NEG) Urine Ketones (Stick) Negative mg/dL (NEG) Urine Blood Trace (NEG) Urine Nitrite Negative (NEG) Urine Bilirubin Negative (NEG) Urine Urobilinogen Dipstick 0.2 mg/dL (0.2 mg/dL) Urine Leukocyte Esterase Small (NEG) Urine RBC Occ /HPF (0-2) Urine WBC Occ /HPF (0-4) Urine Squamous Epithelial Cells Few /LPF Urine Bacteria 0 /HPF (0-FEW) Urine Hyaline Casts Moderate /HPF Urine Mucus Slight /LPF White Blood Count 5.2 x10^3/uL (4.0-11.0) Red Blood Count 4.36 x10^6/uL (3.50-5.40) Hemoglobin 13.3 g/dL (12.0-15.5) Hematocrit 39.6 % (36.0-47.0) Mean Corpuscular Volume 91 fL (79-100) Mean Corpuscular Hemoglobin 31 pg (25-35) Mean Corpuscular Hemoglobin Concent 34 g/dL (31-37) Red Cell Distribution Width 14.0 % (11.5-14.5) Platelet Count 266 x10^3/uL (140-400) Neutrophils (%) (Auto) 61 % (31-73) Lymphocytes (%) (Auto) 27 % (24-48) Monocytes (%) (Auto) 6 % (0-9) Eosinophils (%) (Auto) 4 % (0-3) H Basophils (%) (Auto) 2 % (0-3) Neutrophils # (Auto) 3.1 x10^3/uL (1.8-7.7) Lymphocytes # (Auto) 1.4 x10^3/uL (1.0-4.8) Monocytes # (Auto) 0.3 x10^3/uL (0.0-1.1) Eosinophils # (Auto) 0.2 x10^3/uL (0.0-0.7) Basophils # (Auto) 0.1 x10^3/uL (0.0-0.2) Prothrombin Time 12.9 SEC (11.7-14.0) Prothrombin Time INR 1.0 (0.8-1.1) Sodium Level 142 mmol/L (136-145) Potassium Level 5.3 mmol/L (3.5-5.1) H Chloride Level 106 mmol/L (98-107) Carbon Dioxide Level 26 mmol/L (21-32) Anion Gap 10 (6-14) Blood Urea Nitrogen 28 mg/dL (7-20) H Creatinine 1.6 mg/dL (0.6-1.0) H Estimated GFR (Cockcroft-Gault) 37.0 BUN/Creatinine Ratio 18 (6-20) Glucose Level 105 mg/dL (70-99) H Lactic Acid Level 0.5 mmol/L (0.4-2.0) Calcium Level 10.2 mg/dL (8.5-10.1) H Magnesium Level 2.3 mg/dL (1.8-2.4) Total Bilirubin 0.5 mg/dL (0.2-1.0) Aspartate Amino Transferase (AST) 20 U/L (15-37) Alanine Aminotransferase (ALT) 10 U/L (14-59) L Alkaline Phosphatase 142 U/L (46-116) H Creatine Kinase 87 U/L (26-192) Troponin I Quantitative < 0.017 ng/mL (0.000-0.055) LB-Uug-P-Type Natriuretic Peptide 1327 pg/mL (0-449) H Total Protein 7.6 g/dL (6.4-8.2) Albumin 4.0 g/dL (3.4-5.0) Albumin/Globulin Ratio 1.1 (1.0-1.7) Laboratory Tests 01/23/19 09:31 Laboratory Tests 01/23/19 10:05 EKG EKG EKG interpreted presented by me. EKG at 0904 showed normal sinus rhythm at rate of 68, left moody axis, nonspecific T-wave abnormality, no acute ST-T wave elevation. Radiology/Procedures Radiology/Procedures [][address] [address] IMAGING REPORT Signed PATIENT: VITO DUNCAN ACCOUNT: [id number] : 1930 LOCATION: ER AGE: 88 SEX: F EXAM STATUS: REG ER ORD. PHYSICIAN: AV COSTA MD REASON: confusion PROCEDURE: CHEST PA & LATERAL PA and lateral views of the chest. Comparison: 01/23/2018. Indication: Confusion Findings: Sternotomy wires and CABG clips are reidentified. Bilateral reverse humeral arthroplasty changes are seen. The heart size is enlarged but stable, the aorta is calcified and tortuous. No pneumothorax or effusion. No air space or interstitial disease. The bony structures are intact. Impression: 1. No acute cardiopulmonary process. Electronically signed by: Sandeep Llamas MD (01/23/2019 9:59 AM) [facility] DICTATED and SIGNED BY: SANDEEP LLAMAS MD DATE: 01/23/[address] [address] IMAGING REPORT Signed PATIENT: VITO DUNCAN ACCOUNT: [id number] : 1930 LOCATION: ER AGE: 88 SEX: F EXAM STATUS: REG ER ORD. PHYSICIAN: AV COSTA MD REASON: confusion PROCEDURE: CT HEAD WO CONTRAST EXAM: CT Head without IV contrast CLINICAL HISTORY: confusion COMPARISON: CT head 02/21/2016 TECHNIQUE: Routine CT of the head without contrast. Soft tissues and bone windows were reviewed. PQRS compliance statement - One or more of the following individualized dose reduction techniques were utilized for this study: 1. Automated exposure control 2. Adjustment of the mA and/or kV according to patient size 3. Use of iterative reconstruction technique FINDINGS: There is no evidence of hemorrhage, mass or extra-axial fluid collection. Diffuse subcortical, periventricular and deep white matter, as well as pontine hypoattenuation may be seen with chronic small vessel disease. There is no mass effect or shift of the intracranial structures. The ventricles, basilar cisterns and cortical sulci are normal in size and configuration for the patients stated age. The cerebellum and brainstem are unremarkable. The calvarium demonstrates no evidence of fracture or focal lesion. There is normal aeration of the visualized paranasal sinuses and mastoid air cells. The visualized portions of the orbits are normal. IMPRESSION: 1. No evidence for acute intracranial process. 2. White matter changes may be seen with chronic small vessel disease. Electronically signed by: Cameron Gallo MD (01/23/2019 9:30 AM) [facility] DICTATED and SIGNED BY: CAMERON GALLO MD DATE: 01/23/19929 Course & Med Decision Making Course & Med Decision Making Pertinent Labs and Imaging studies reviewed. (See chart for details) Evaluation of patient in ER showed 88-year-old male patient brought in by her daughter because of confusion for several months. Patient did not have acute abnormality in exam, CT and labs except for chronic renal insufficiency, mild hyperkalemia, hypercalcemia and CHF. Patient's daughter requesting hospitalization. Primary care physician Dr. Verde was informed at 1054 and states the patient doesn't need hospitalization for correction placement and needs to follow-up with her appointment on 01/25/19 , two days from today. I've spoken with the patient and/or caregivers. I've explained the patient's condition, diagnosis and treatment plan based on information available to me at this time. I've answered the patient's and/or caregivers questions and addressed any concerns. The patient and/or caregivers have a good understanding the patient's diagnosis, condition and treatment plan as can be expected at this point. Vital signs have been stabilized. The patient's condition is stable for discharge from the emergency department. The patient will pursue further outpatient evaluation with her primary care provider or other designated consulting physician as outlined in the discharge instructions. Patient and/or caregivers are agreeable to this plan of care and follow-up instructions have been explained in detail. The patient and/or caregivers have received these instructions in written format and expressed understanding of these discharge instructions. The patient and her caregivers are aware that if any significant change in condition or worsening of symptoms should prompt him to immediately return to this of the closest emergency department. If an emergent department is not readily available I would encourage him to call 911. Shellie Disclaimer Dragon Disclaimer This electronic medical record was generated, in whole or in part, using a voice recognition dictation system. Departure Departure Impression: Primary Impression: Dementia Additional Impressions: Hyperkalemia Renal insufficiency Heart failure Hypercalcemia Disposition: HOME, SELF-CARE (at 1108) Condition: STABLE Referrals: Ino VERDE MD (PCP) Patient Instructions: Dementia, Hypercalcemia, Hyperkalemia Additional Instructions: Follow-up with your primary care physician in 2 days as a scheduled Return to ER if not getting better Problem Qualifiers Primary Impression: Dementia Dementia type: unspecified type Dementia behavioral disturbance: without behavioral disturbance Qualified Codes: F03.90 - Unspecified dementia without behavioral disturbance Additional Impressions: Heart failure Heart failure type: unspecified Heart failure chronicity: unspecified Qualified Codes: I50.9 - Heart failure, unspecified AV COSTA MD Jan 23, 2019 10:24
[2019-01-23 10:36] LABS: CALCIUM 10.2 mg/dL (8.5-10.1); CREATININE 1.6 mg/dL (0.6-1.0)
[2019-01-23 10:37] LABS: POTASSIUM 5.3 mmol/L (3.5-5.1)
[2019-01-23 10:41] LABS: ALBUMIN/GLOBULIN RATIO 1.1 (1.0-1.7); MAGNESIUM 2.3 mg/dL (1.8-2.4); TOTAL BILIRUBIN 0.5 mg/dL (0.2-1.0); TOTAL PROTEIN 7.6 g/dL (6.4-8.2)
[2019-01-23] MEDS ORDERED: SODIUM POLYSTYRENE SULFON/SORB 15 GM/60 ML ORAL.SUSP PO ONE (11:00)
== END 2019-01-23 11:33 | disposition home or self-care (01) ==
LOC: ER 08:39
DX: F03.90 Unspecified dementia, unspecified severity, without behavioral disturbance, psychotic disturbance, mood disturbance, and anxiety (principal); E87.5 Hyperkalemia; N28.9 Disorder of kidney and ureter, unspecified; I11.0 Hypertensive heart disease with heart failure; I50.9 Heart failure, unspecified; E83.52 Hypercalcemia; I25.2 Old myocardial infarction; I25.10 Atherosclerotic heart disease of native coronary artery without angina pectoris; Z90.710 Acquired absence of both cervix and uterus; Z95.1 Presence of aortocoronary bypass graft; Z88.5 Allergy status to narcotic agent; Z88.8 Allergy status to other drugs, medicaments and biological substances
CPT/HCPCS: 36415; 70450; 71046; 80053; 81001; 82550; 83605; 83735; 83880; 84484; 85025; 85610; 87086; 93005; 99285-25